=== PATIENT | male | born 1945 | race Caucasian/White ===

== ENCOUNTER 2025-01-27 14:21 | Inpatient (IN) | payer MEDICARE ==
[~2025-01-27] VITALS: Ht 195.6 cm; Wt 162.1 kg
[~2025-01-27 14:21] MED LIST: DAPA10TA PO; DOXY150T3 PO; FURO40TA4 PO; MIDO10TA3 PO; OMEP20TA23 PO; VITD400T PO
[2025-01-27] MEDS ORDERED: DOBUTamine-DoBUTrex 500mg/D5W 250 ML IV SCH (15:05)
[2025-01-27] MEDS: DOBUTamine-DoBUTrex 500mg/D5W 250 ML IV SCH (15:14)
--- NOTE | 2025-01-27 15:18 | ELECTROCARDIOGRAPH REPORT ---
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 Miranda Morgan Measurements Intervals [place] Rate: 86 P: 194 DE: 20 QRS: -11 QRSD: 129 T: 70 QT: 466 QTc: 558 Interpretive Statements Ectopic atrial rhythm Paired ventricular premature complexes Short DE interval Right atrial enlargement Nonspecific intraventricular conduction delay Anterior infarct, old Electronically Signed On 01-27-2025 17:10:[address] Miranda Morgan Please click the below link to view image of tracing.
[2025-01-27 15:32] LABS: BASOPHILS % (AUTO) 0.6 % (0-1); EOSINOPHILS # (AUTO) 0.1 X10'3 (0-0.9); EOSINOPHILS % (AUTO) 1.9 % (0-6); HEMATOCRIT 33.5 % (42.0-52.0); HEMOGLOBIN 11.6 g/dl (14.0-17.9); LYMPHOCYTES # (AUTO) 0.4 X10'3 (1.1-4.8); LYMPHOCYTES % (AUTO) 8.4 % (21-51); MEAN CORPUSCULAR HEMOGLOBIN 36.5 PG (27.0-31.0); MEAN CORPUSCULAR HGB CONC 34.7 g/dL (33.0-36.5); MEAN CORPUSCULAR VOLUME 105.4 FL (78-98); MEAN PLATELET VOLUME 7.5 FL (7.4-10.4); MONOCYTES # (AUTO) 0.3 X10'3 (0-0.9); MONOCYTES % (AUTO) 6.6 % (2-12); NEUTROPHILS # (AUTO) 3.7 X10'3 (1.8-7.7); NEUTROPHILS % (AUTO) 82.5 % (42-75); PLATELET COUNT 87 X10'3 (140-440); RED BLOOD COUNT 3.17 X10'6 (4.70-6.10); RED CELL DISTRIBUTION WIDTH 16.6 % (11.5-14.5); WHITE BLOOD COUNT 4.4 X10'3 (4.5-11.0)
[2025-01-27 15:52] LABS: ALBUMIN 2.4 G/DL (3.4-5.0); ANION GAP 8 (8-16); BLOOD UREA NITROGEN 23 MG/DL (7-18); CALCIUM 8.8 MG/DL (8.5-10.1); CHLORIDE 101 MMOL/L (99-107); CREATININE 1.15 MG/DL (0.60-1.10); GLUCOSE 121 MG/DL (70-104); POTASSIUM 3.8 MMOL/L (3.5-5.1); PRO BRAIN NATRIURETIC PEPTIDE 702 PG/ML (0-450); SODIUM 143 MMOL/L (135-145); TOTAL CARBON DIOXIDE 34.1 MMOL/L (24-32); eCRCL 67 ML/MIN; eGFR 62 ML/MIN
--- NOTE | 2025-01-27 16:14 | Physician Documentation ---
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 Patients blood glucose is 130. He presents with a dobutamine drip that is 5mog/kg/min. Patient also has a PICC present in his right upper arm. Patient was admitted to [facility] on 01/05/2025 and discharged to [facility] 01/10/2025. On this visit patients ejection fraction revealed it was 55-60%. HPI Per [facility]: This is a 79 year old male who is transferred to our facility from [facility] where he was admitted for worsening edema and shortness of breath. He was diagnosed with heart failure. They tried to diurease him over there, but his blood pressure was on the lower side so he was started on a dobuatamine drip and he was continued on Lasix and he is diuresing well on that. It looks like the patient has gained 60 pounds of fluid over the past few months. The patient is transferred to our facility for further management of his CHF and respiratory failure. Significant labs 01/23/2025: Creatinine: 0.82 Sodium: 128 Medication Reconciliation Allergies: Coded Allergies: No Known Allergies (Unverified , 01/27/25) Scheduled Cholecalciferol (Vitamin D3) (Vitamin D), 50 MCG PO DAILY, (Reported) Dapagliflozin Propanediol (Farxiga), 1 TAB PO DAILY, (Reported) Doxycycline Monohydrate (Doxycycline), 100 MG PO DAILY, (Reported) Furosemide (Furosemide), 1 TAB PO BID, (Reported) Midodrine Hcl (Midodrine Hcl), 1 TAB PO BID, (Reported) Omeprazole Magnesium (Prilosec Otc), 1 TAB PO DAILY, (Reported) Potassium Chloride (Potassium Chloride), 1 TAB PO DAILY, (Reported) Miscellaneous Medications Tobramycin/Dexamethasone (Tobramycin-Dexameth Ophth Susp), EACHEYE, (Reported) Past Medical History Past Medical History: Congestive Heart Failure, GERD, Diabetes Review of Systems All Other Systems at this time: Reviewed and Negative ROS As stated above in the HPI, otherwise all systems are reviewed and negative. Physical Exam Vital Signs: RN Vital Signs have been reviewed: Yes, Temperature: 96.5, Source: Oral, Heart Rate: 71, Respiratory Rate: 18, BP: 96/50, Pulse Oximetry: 95, Weight: 162.400 Oxygen Flow Rate: 0 Pulse Oximetry Reflects: adequate oxygenation Physical Exam General: poor appetite. The patient is well developed, well nourished, nontoxic appearing and is in no acute distress. Skin: [place], warm and dry with no rashes. HEENT: Head was normocephalic and atraumatic. Eyes - pupils equal, round, reactive to light and accommodation. Extraocular movements were intact. Conjunctivae were nonicteric. Ears - bilateral tympanic membranes were normal. The mouth and oropharynx were clear with moist mucous membranes. There were no pharyngeal exudates or erythema. Neck: Supple and nontender. There was no jugular venous distention, lymphadenopathy, thyromegaly or masses. Chest: Clear to auscultation bilaterally without wheezes, rales or rhonchi. No accessory muscle use. No dullness to percussion. Heart: Rate regular and rhythmic. S1, S2. No murmurs. Palpation of the chest wall was normal. No rubs or thrills. Abdomen: Increased bowel sounds. Soft, nontender and nondistended. No guarding or rebound. No hepatosplenomegaly or palpable masses. Extremities: Pitting edema lower extremities with weeping skin. No cyanosis, clubbing or edema. The patient moves all extremities. Pulses were equal and symmetric. Neurologic: Cranial nerves II-XII were intact. Sensation was intact to light touch throughout. Motor strength was 5/5 in all four extremities. Deep tendon reflexes were intact in both upper and lower extremities. Psychologic: The patient was oriented to person, place and time. The patient demonstrated appropriate judgement and insight. Progress Progress Note 1715: The case was discussed with Dr. Lisa who stated that the patient needs a UA and started on antibiotics. He needs to be given fluids and have the doubutamine discontinued and admitted to the hospital. 180: The case was discussed Dr. Lisa who kindly agreed to admission of the patient to the ICU. Results/Orders Reviewed/noted all lab results: Yes Results/Orders Orders - KING ZHENG MD Chest,Single View (01/27/25 15:05) Monitor (01/27/25 15:05) Saline Lock (01/27/25 15:05) Oxygen (01/27/25 15:05) Electrocardiogram (01/27/25 15:05) Culture Blood (01/27/25 16:13) Chest,Single View (01/27/25 16:44) Page Hospitalist (01/27/25 17:32) Fill Out Med Reconciliation (01/27/25 17:32) * (B) [place]- Non Protocol * Q12H@,19 (01/27/25 17:56) Completed Orders - KING ZHENG MD Dobutamine-Dobutrex 500mg/D5w (Dobutamin (01/27/25 15:05) Chest,Single View (01/27/25 15:05) Cbc/Diff (01/27/25 15:05) BMP (01/27/25 15:05) PBNP (01/27/25 15:05) Electrocardiogram (01/27/25 15:05) Hs Troponin I W Calculations (01/27/25 15:05) Hs Troponin I W Calculations (01/27/25 17:05) Hs Troponin I W Calculations (01/27/25 18:05) Dobutamine-Dobutrex 500mg/D5w (Dobutamin (01/27/25 15:06) Pt Inr (01/27/25 16:11) PTT (01/27/25 16:11) Procalcitonin (01/27/25 16:13) Lacticsepsis (01/27/25 16:13) Liver Panel (01/27/25 15:16) Chest,Single View (01/27/25 16:44) Normal Saline 1000ml (Sodium Chloride 10 (01/27/25 17:35) Ceftriaxone 2gm/D5w 50ml Bag (Rocephin 2 (01/27/25 17:35) Morphine 2mg/Ml Inj. (Morphine Inj.) (01/27/25 17:55) Ua With Microscopic (01/27/25 18:15) TSH (01/27/25 15:16) Vital Signs 01/27/25 01/27/25 01/27/25 01/27/25 14:48 15:03 15:25 15:40 Temp 96.5 Pulse 75 71 70 72 Resp 18 18 15 15 B/P (MAP) 95/37 96/41 (59) 104/49 (67) 93/48 (63) Pulse Ox 95 95 96 97 O2 Flow Rate 5.0 5.0 01/27/25 01/27/25 01/27/25 01/27/25 16:02 16:02 16:07 17:05 Temp 96.5 Pulse 71 71 Resp 18 18 13 B/P (MAP) 96/50 (65) 100/50 (67) Pulse Ox 94 95 95 O2 Delivery Nasal Cannula* O2 Flow Rate 0 5 5 FiO2 N/A N/A 01/27/25 01/27/25 01/27/25 01/27/25 18:02 18:39 18:42 19:10 Temp 95.5 95.5 Pulse 69 64 Resp 16 16 16 16 B/P (MAP) 92/42 (59) 92/46 (61) Pulse Ox 96 96 O2 Flow Rate 5.0 2.0 Laboratory Tests Test 01/27/25 15:16 01/27/25 15:36 01/27/25 16:24 01/27/25 16:56 White Blood Count 4.4 L Red Blood Count 3.17 L Hemoglobin 11.6 L Hematocrit 33.5 L Mean Corpuscular Volume 105.4 H Mean Corpuscular Hemoglobin 36.5 H Mean Corpuscular Hemoglobin Concent 34.7 Red Cell Distribution Width 16.6 H Platelet Count 87 L Mean Platelet Volume 7.5 Neutrophils (%) (Auto) 82.5 H Lymphocytes (%) (Auto) 8.4 L Monocytes (%) (Auto) 6.6 Eosinophils (%) (Auto) 1.9 Basophils (%) (Auto) 0.6 Neutrophils # (Auto) 3.7 Lymphocytes # (Auto) 0.4 L Monocytes # (Auto) 0.3 Eosinophils # (Auto) 0.1 Basophils # (Auto) 0.0 CBC Comment Prothrombin Time 16.1 H INR International Normalized Ratio 1.6 Activated Partial Thromboplast Time 46 H Coagulation Comments Sodium Level 143 Potassium Level 3.8 Chloride Level 101 Carbon Dioxide Level 34.1 H Anion Gap 8 Blood Urea Nitrogen 23 H Creatinine 1.15 H Estimated GFR/1.73 m2 62 BUN/Creatinine Ratio 20.0 Glucose Level 121 H Calcium Level 8.8 Total Bilirubin 2.7 H Direct Bilirubin 1.4 H Aspartate Amino Transf (AST/SGOT) 46 H Alanine Aminotransferase (ALT/SGPT) 27 Alkaline Phosphatase 144 H Troponin I High Sensitivity 11 11 Pro-B-Type Natriuretic Peptide 702 H Total Protein 6.0 L Albumin 2.4 L Globulin 3.6 Albumin/Globulin Ratio 0.7 L Thyroid Stimulating Hormone (TSH) 0.56 Chemistry Comments Procalcitonin 0.17 Lactic Acid Level 1.9 Troponin I High Sens Percent Delta 0 Troponin I Hi Sens Absolute Change 0 Test 01/27/25 17:56 01/27/25 18:15 Troponin I High Sensitivity 11 Troponin I High Sens Percent Delta 0 Troponin I Hi Sens Absolute Change 0 Urine Specimen Description Non-specified Urine Color Yellow Urine Clarity Slightly cloudy Urine pH 5.5 Urine Specific [place] 1.015 Urine Protein Trace Urine Glucose (UA) >=1000 H Urine Ketones Trace H Urine Occult Blood Large H Urine Nitrite Negative Urine Bilirubin Small Urine Urobilinogen 1.0 Urine Leukocyte Esterase Trace H Urine RBC Tntc Urine WBC Tntc H Urine Squamous Epithelial Cells Few Urine Bacteria 3+ Urine Hyaline Casts 10-30 Volume Urine Centrifuged 10 ml Urine Comment Microbiology Date/Time Source Procedure Growth Status 01/27/25 16:56 Blood Arm Left Blood Culture - Preliminary NO GROWTH AFTER 3 DAYS Resulted Re-Evaluation Re-Evaluation : Re-Evaluation: Improved Progress Patient was seen and examined. Patient was given reassurance. Patient presented with some generalized weakness as well as low blood pressure. Patient presented with significant edema throughout his body. The edema is concerning in that the patient can not receive excessive amounts of fluids since he is already 3rd spacing. Laboratory work CBC shows pancytopenia with a low WBC of 4.4 hemoglobin hematocrit low at 11 and 33. MCV is elevated at 105.4 showing macrocytic anemia. Platelets low at 87. Chemistry shows albumin low at 2.4. And only trace proteinuria in the urine. There is glucosuria hematuria and ketonuria with trace leukocyte esterase TNTC RBCs TNTC WBCs consistent with significant urinary infection. Patient did receive a L bolus but then no additional fluids were given after he responded to fluids. Concern for fluid overload prevented additional fluid bolus at this time. Patient also received pain medications in the ICU doctor was then consulted to evaluate the patient. Continuous cardiac rn interpretation shows normal sinus rhythm heart rate 7 0s, no ectopy, normal, my interpretation. Pulse oximetry monitor interpretation shows low oxygenation at 95% on 5 L oxygen, abnormal, my interpretation. 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 King Zheng Measurements Intervals [place] Rate: 86 P: 194 ID: 20 QRS: -11 QRSD: 129 T: 70 QT: 466 QTc: 558 Interpretive Statements Ectopic atrial rhythm Paired ventricular premature complexes Short [place] interval Right atrial enlargement Nonspecific intraventricular conduction delay Anterior infarct, old Electronically Signed On 01-27-2025 17:10:[address] King Zheng Please click the below link to view image of tracing. EKG Date and Time:01/27/25 1517 Electronically Signed by: KING ZHENG MD Date and Time: 01/27/25 1710 Chest X-Ray #1: Additional Comments CHEST RADIOGRAPH Indication: PICC LINE PLACEMENT CONFIRMATION Technique: Single frontal view of the chest was obtained COMPARISON: DI CHEST,SINGLE VIEW on DOS: 01/05/25 FINDINGS: Lines and Tubes: Right PICC in satisfactory position at the junction of the subclavian vein and superior vena cava. Lungs: Clear Pleura: No effusion. No pneumothorax. Cardiomediastinal contours: Unremarkable Bones: Unremarkable IMPRESSION: Right PICC in satisfactory position at the junction of the subclavian vein and superior vena cava. Electronically Signed by:BAY GABRIEL MD Date & Time: 01/27/25 2094 Chest X-Ray #2: Additional Comments EXAM: DI CHEST,SINGLE VIEW TECHNIQUE: Single frontal chest radiograph CLINICAL HISTORY: CP COMPARISON: DI CHEST,SINGLE VIEW on DOS: 01/05/25 Findings/Impression: Frontal chest radiograph demonstrates no acute osseous or superficial soft tissue abnormalities. Right upper extremity PICC terminates near the mid SVC. The trachea is midline. Mild cardiomegaly. Low lung volumes bronchovascular crowding and bibasilar atelectasis. No pneumothorax, pleural effusions, or consolidations. Electronically Signed by:LOLY DOYLE DO Date & Time: 01/27/25 1741 Medical Decision Making Additional info obtained from: old records Differential Dx:Considerations: Include: anemia, dehydration, electrolyte imbalance, hypotension, hypovolemia, renal failure, respiratory failure, other Departure Time of Disposition: 18:07 Disposition: ADMITTED INPATIENT Admitted to Inpatient Unit: yes, to binder layer Admission Level of Care: Critcal Care Impression: Primary Impression: Anasarca Additional Impressions: Hypothermia Qualified Codes: T68.XXXA - Hypothermia, initial encounter Prolonged Qtc Chronic anemia Acute urinary tract infection Condition: Critical Referrals: NO PRIMARY CARE PROVIDER (PCP) Education Educated: Patient Educated regarding: diagnosis Critical Care Note Total Time (mins): 33 Critical Care Note The very real possibility of a deterioration of this patient's condition required the highest level of my preparedness for sudden, emergent intervention. I provided critical care services, which included medication orders, frequent reevaluations of the patient's condition and response to treatment, ordering and reviewing test results, and discussing the case with various consultants. Excludes time spent performing separately billable procedures. The critical care time associated with the care of the patient was 33 minutes. Signature Scribe Signature: Scribed for King Zheng MD by Rosa Chiang . 01/27/25 16:39 Attestation: The note accurately reflects work and decisions made by me.King Zheng MD 01/27/25 16:14 KING ZHENG MD Jan 27, 2025 16:14 ROSA MARAVILLA Jan 27, 2025 16:40
[2025-01-27 16:29] LABS: APTT 46 SECONDS (22-32); INR 1.6 INR; PROTHROMBIN TIME 16.1 SECONDS (9.0-12.0)
[2025-01-27 16:49] LABS: ALANINE AMINOTRANSFERASE 27 U/L (12-78); ALBUMIN/GLOBULIN RATIO 0.7 (1.1-1.5); ALKALINE PHOSPHATASE 144 IU/L (46-116); ASPARTATE AMINO TRANSFERASE 46 U/L (10-37); BILIRUBIN,DIRECT 1.4 MG/DL (0-0.3); BILIRUBIN,TOTAL 2.7 MG/DL (0.1-1.0)
--- NOTE | 2025-01-27 17:43 | RADIOLOGY REPORT ---
EXAM: DI CHEST,SINGLE VIEW TECHNIQUE: Single frontal chest radiograph CLINICAL HISTORY: CP COMPARISON: DI CHEST,SINGLE VIEW on DOS: 01/05/25 Findings/Impression: Frontal chest radiograph demonstrates no acute osseous or superficial soft tissue abnormalities. Right upper extremity PICC terminates near the mid SVC. The trachea is midline. Mild cardiomegaly. Low lung volumes bronchovascular crowding and bibasilar atelectasis. No pneumothorax, pleural effusions, or consolidations.
--- NOTE | 2025-01-27 17:46 | RADIOLOGY REPORT ---
CHEST RADIOGRAPH Indication: PICC LINE PLACEMENT CONFIRMATION Technique: Single frontal view of the chest was obtained COMPARISON: DI CHEST,SINGLE VIEW on DOS: 01/05/25 FINDINGS: Lines and Tubes: Right PICC in satisfactory position at the junction of the subclavian vein and super ior vena cava. Lungs: Clear Pleura: No effusion. No pneumothorax. Cardiomediastinal contours: Unremarkable Bones: Unremarkable IMPRESSION: Right PICC in satisfactory position at the junction of the subclavian vein and superior vena cava.
[2025-01-27] MEDS: morphine 2 MG/ML inj. syringe IV ONE (18:02)
[2025-01-27] MEDS: normal saline 1000ML IV soln IV ONE (18:02)
[2025-01-27] MEDS: CefTRIAXone 2gm/D5W 50ml BAG 50 ML IV ONE (18:02)
[2025-01-27] MEDS ORDERED: TOBR5DRO7 EACHEYE (18:15)
--- NOTE | 2025-01-27 18:42 | HISTORY AND PHYSICAL ---
History of Present Illness History of present illness 80-year-old male who was transferred from [facility] via EMS for hypothermia and hypotension. The patient was transferred to [facility] from [facility] after he was admitted for anasarca and dyspnea. He was diagnosed with heart failure at that time with a normal EF. He was treated with diuretic therapy and dobutamine and transferred to [facility]. He was notable for hypotension and hypothermia in the emergency department. He was on dobutamine at 4 mcg/kg per minute. Physical examination revealed anasarca. Dobutamine was stopped because the patient was hypotensive and has a background history of a normal EF. He has no complaint of fever, chills, shortness of breath, chest pain/chest tightness, cough, phlegm, wheezing, no dysuria, no headaches, no diplopia, no blurring of vision, no lightheadedness and no dizziness. Expected to stay > 48 hours Yes Reason for Visit: Pulmonary critical care Chief complaint Hypothermia and hypotension Source: Patient, Family (Daughter), Medical Records Past Medical History Past medical history Morbid obesity, diabetes mellitus, congestive heart failure, anasarca since July of last year, bed ridden at least for two years after hip fracture repair at [facility]. Past Surgical History Surgical history Hip fracture repair. Past Family History Family history Reviewed with daughter and noncontributory. Past Social History Social history No history of tobacco consumption, no history of alcohol consumption and no history of recreational drug use. Medications Home Meds Reported Medications Tobramycin/Dexamethasone (Tobramycin-Dexameth Ophth Susp) 0.3 %-0.1 % Drops.susp, EACHEYE 01/27/25 Cholecalciferol (Vitamin D3) (Vitamin D) 10 Mcg (400 Unit) Tablet, 50 MCG PO DAILY for 30 Days, #30 TAB 0 Refills 01/05/25 Doxycycline Monohydrate (Doxycycline) 150 Mg Tablet, 100 MG PO DAILY for 10 Days, #20 TAB 01/05/25 Dapagliflozin Propanediol (Farxiga) 10 Mg Tablet, 1 TAB PO DAILY for 30 Days, #30 TAB 0 Refills 01/05/25 Midodrine Hcl (Midodrine Hcl) 10 Mg Tablet, 1 TAB PO BID for 30 Days, #90 TAB 0 Refills 01/05/25 Furosemide (Furosemide) 40 Mg Tablet, 1 TAB PO BID for 30 Days, #30 TAB 0 Refills 01/05/25 Omeprazole Magnesium (Prilosec Otc) 20 Mg Tablet.dr, 1 TAB PO DAILY for 30 Days, #30 TAB 0 Refills 01/05/25 Current medications Current Medications Dobutamine HCl/ Dextrose 250 ml @ 9.744 mls/ hr [id number] IV ; Start 01/27/25 at 15:05; Stop 01/27/25 at 15:06; Status DC Dobutamine HCl/ Dextrose 250 ml @ 9.744 mls/ hr [id number] IV Last administered on 01/27/25at 15:14; Start 01/27/25 at 15:06 Sodium Chloride (sodium chloride 1000ml IV soln) 1,000 ml ONCE ONCE IV Last administered on 01/27/25at 18:02; Start 01/27/25 at 17:35; Stop 01/27/25 at 17:37; Status DC Ceftriaxone Sodium/Dextrose 50 ml @ 100 mls/hr ONCE ONCE IV Last administered on 01/27/25at 18:02; Start 01/27/25 at 17:35; Stop 01/27/25 at 18:04; Status DC Morphine Sulfate (morphine inj.) 2 mg ONCE ONCE IV Last administered on 01/27/25at 18:02; Start 01/27/25 at 17:55; Stop 01/27/25 at 17:56; Status DC Review of Systems Allergies: Coded Allergies: No Known Allergies (Unverified , 01/27/25) Exam Vital signs Vital Signs Date Time Temp Pulse Resp B/P (MAP) Pulse Ox O2 Delivery O2 Flow Rate FiO2 01/27/25 18:02 16 01/27/25 17:05 96.5 71 13 100/50 (67) 95 5 N/A 01/27/25 16:07 95 Nasal Cannula* 5 N/A 01/27/25 16:02 71 18 96/50 (65) 94 0 01/27/25 16:02 18 01/27/25 15:40 72 15 93/48 (63) 97 01/27/25 15:25 70 15 104/49 (67) 96 01/27/25 15:03 71 18 96/41 (59) 95 5.0 01/27/25 14:48 96.5 75 18 95/37 95 5.0 Physical exam HEENT examination: N/C/AT, PERRLA, EOMI, anicteric sclerae Neck: Supple, with no jugular venous distention and no lymphadenopathy. Chest: Symmetric expansion bilaterally Pulmonary: Clear to auscultation bilaterally with no wheezing, no rales and no rhonchi Cardiovascular: Normal S1 and S2 without any S3-S4 gallop Abdomen: Morbidly obese soft and nontender and no organomegaly. Extremities: Anasarca Neurology: No focal deficits Psych: Normal affect Laboratory Results Laboratory Tests 01/27/25 15:16 Chemistry Test 01/27/25 15:16 Albumin 2.4 G/DL (3.4-5.0) L Albumin/Globulin Ratio 0.7 (1.1-1.5) L Calcium Level 8.8 MG/DL (8.5-10.1) Globulin 3.6 G/DL (2.7-4.3) Total Protein 6.0 G/DL (6.4-8.2) L Coagulation Test 01/27/25 15:16 Prothrombin Time 16.1 SECONDS (9.0-12.0) H INR International Normalized Ratio 1.6 INR Activated Partial Thromboplast Time 46 SECONDS (22-32) H Coagulation Comments LFT Test 01/27/25 15:16 Alanine Aminotransferase (ALT/SGPT) 27 U/L (12-78) Alkaline Phosphatase 144 IU/L (46-116) H Aspartate Amino Transf (AST/SGOT) 46 U/L (10-37) H Direct Bilirubin 1.4 MG/DL (0-0.3) H Total Bilirubin 2.7 MG/DL (0.1-1.0) H Urinalysis Test 01/27/25 18:15 Urine Specimen Description Pending Urine Color Pending Urine Clarity Pending Urine pH Pending Urine Specific [place] Pending Urine Protein Pending Urine Glucose (UA) Pending Urine Ketones Pending Urine Occult Blood Pending Urine Nitrite Pending Urine Bilirubin Pending Urine Urobilinogen Pending Urine Leukocyte Esterase Pending Volume Urine Centrifuged Pending Urine Comment Microbiology Microbiology 01/27/25 Blood Culture - Preliminary, Resulted NEGATIVE (LESS THAN 24 HOURS) Assessment/Plan Plan Hypotension: Could have been exacerbated or caused by dobutamine. Dobutamine was discontinued. EKG reveals a sinus rhythm. Troponins are unremarkable. Hypothermia: Improved with a Jodi Hugger. Anasarca with no radiological evidence of acute CHF VS cause: Patient is at [facility] since July 2024 according to the daughter. Differential diagnosis is hepatic cause, renal cause and cardiac cause. Most recent echocardiogram revealed an EF of 55-60%. ID: Hypothermia, Mild leukopenia with hypotension could be due to an infectious process. He has a normal lactate level. His procalcitonin level is suggestive of low risk for sepsis. New line blood cultures were drawn. No need for antibiotic therapy at this point. Deconditioning: Daughter reports that patient has been nonambulatory for two years and has developed anasarca Endocrine: Has history of diabetes. Maintain serum glucose levels of 140-180 mg/dL. Plan: Dobutamine was discontinued since it is a peripheral vasodilator in a patient with hypotension and a normal EF. We will check TSH and random cortisol levels. Check urine for proteinuria Continue apixaban 2.5 mg p.o. b.i.d. hold diuretic therapy in light of hypotension. Code status: Full code after discussion with the patient in the presence of his daughter in the emergency room. IV access: PICC line Overall prognosis: Guarded Critical care time: 35 minutes. VTE VTE Risk Score VTE Risk Score Reference Ranges: Score 0-1 = Low Risk (Aggressive mobilization; early ambulation; no VTE prophylaxis required) Score 2: Moderate Risk (Intermittent/Pneumatic Compression Device OR Lovenox/Heparin/Coumadin) Score 3-4: High Risk (Intermittent/Pneumatic Compression Device AND Lovenox/Heparin/Coumadin) Score > or = 5: Highest Risk (Intermittent/Pneumatic Compression Device AND Lovenox/Heparin/Coumadin) ANDERS GARCIA MD Jan 27, 2025 18:42
[2025-01-27 18:43] LABS: BILIRUBIN,URINE SMALL (Neg); CLARITY,URINE SLIGHTLY CLOUDY (Clear); COLOR,URINE YELLOW (Yellow); GLUCOSE, URINE >=1000 mg/dl (Neg); KETONES,URINE TRACE mg/dl (Neg); LEUKOCYTE ESTERASE ,URINE TRACE (Neg); NITRITES, URINE NEGATIVE (Neg); OCCULT BLOOD,URINE LARGE (Neg); PH,URINE 5.5 (4.8-8.0); PROTEIN,URINE TRACE mg/dl (Neg)
[2025-01-27 18:45] LABS: UA COLLECTION TYPE NON-SPECIFIED
[2025-01-27 18:52] LABS: WBC,URINE TNTC /HPF (0-4)
[2025-01-27 18:53] LABS: RBC,URINE TNTC /HPF (0-2)
[2025-01-27 18:54] LABS: BACTERIA,URINE 3+ /HPF (Neg); SQUAMOUS EPITHELIAL CELL,UR FEW /LPF (FEW)
[2025-01-27] MEDS ORDERED: ondansetron/PF 4mg/2ml inj IV PRN (19:05)
[2025-01-27] MEDS ORDERED: acetaminophen 325mg tablet PO PRN (19:05)
[2025-01-27] MEDS ORDERED: magnesium hydroxide 30ml (MOM) UD suspension PO PRN (19:05)
--- NOTE | 2025-01-27 19:22 | HISTORY AND PHYSICAL-Residence ---
History & Physical Providers to CC Resident Creating Document: SAQIBFAUSTO, RES ~ History of Present Illness Primary Medical Doctor: NATANAEL Seymour Reason for Admit\Complaint: Hypotension and hypothermia History of Present Illness A 80 years old male who was transferred from [facility] on dobutamine drip (4mcg/kg) with a concern of hypothermia and hypotension with progressive acute on chronic shortness of breaths over a week which was associated with generalized anasarca for further evaluation and management plan with a past medical history of CHFpEF 55-60% on Farxiga and Furosemide, T2DM, Class 3 obesity on BMI 42.5, rosacea on doxycycline , residential housekeeper is Dr. Rankin and underwent the stress test three months ago without knowing the results, orthostatic hypotension on midodrine, GERD, right hip surgery and became bed bound since last 2 years, and recent hospitalization at [facility] for CHF exacerbation/ anasarca, and treated with IV Lasix complicated with hypotension on that admission as well. Patient is slightly confused but orientated and communicable but his daughter who is working at OR answered most of the questions. Patient's daughter stated that her mom was the one who was taking care of her dad at the [facility] and started noticing kind of off from his normal, fatigue and generalized weakness and progressive shortness of breath even on the resting with low intake since last week. He has been having the chronic orthopnea PND, sleep with bed recliner. He has been having the generalized edema and did not notice any fluid coming out under his skin. Patient also stated that he has been having the back and scapular pain. Patient also noticed that diarrhea one time this morning. Patient denied chest pain/pressure/discomfort, lower urinary tract infection symptoms and any other open wounds, and productive colored sputum coughing. He dose not have to use any baseline oxygen at home and currently on the 5L NC by maintaining 96%. In ER, patient's dobutamine was stopped because of his low blood pressure and will be admitted to the ICU for the close monitoring and further workups under intensive observation. Allergies: Coded Allergies: No Known Allergies (Unverified , 01/27/25) Home Medications Home Medications Active Reported Tobramycin-Dexameth Ophth Susp (Tobramycin/Dexamethasone) 0.3 %-0.1 % Drops.susp EACHEYE Vitamin D (Cholecalciferol (Vitamin D3)) 10 Mcg (400 Unit) Tablet 50 Mcg PO DAILY 30 Days Doxycycline (Doxycycline Monohydrate) 150 Mg Tablet 100 Mg PO DAILY 10 Days Farxiga (Dapagliflozin Propanediol) 10 Mg Tablet 1 Tab PO DAILY 30 Days Midodrine Hcl 10 Mg Tablet 1 Tab PO BID 30 Days Furosemide 40 Mg Tablet 1 Tab PO BID 30 Days Prilosec Otc (Omeprazole Magnesium) 20 Mg Tablet.dr 1 Tab PO DAILY 30 Days Past Medical History Past Medical History CHFpEF 55-60% on Farxiga and Furosemide, T2DM, Class 3 obesity on BMI 42.5, rosacea on doxycycline , residential housekeeper is Dr. Rankin and underwent the stress test three months ago without knowing the results, orthostatic hypotension on midodrine, GERD, and recent hospitalization at [facility] for CHF exacerbation/ anasarca, and treated with IV Lasix complicated with hypotension on that admission as well. Past Surgical History Surgical History Comment right hip surgery and became bed bound since last 2 years Past Social History Social History Comment He was transferred from [facility] after he was recently discharged from [facility] after treated with IV Lasix for CHF PEF exacerbation with generalized anasarca. His residential housekeeper is Dr. Rankin He is living with the spouse was taking care of him He is totally bedbound since he has a right hip repair surgery two years ago. Denies history of alcohol, illicit drugs and smoking history. ROS All Other Systems: Reviewed and Negative ROS Hours were reviewed, WNL except for the above mentioned in HPI Exam Vitals: Vital Signs Date Time Temp Pulse Resp B/P (MAP) Pulse Ox O2 Delivery O2 Flow Rate FiO2 01/27/25 18:42 16 01/27/25 18:39 95.5 69 96 5.0 01/27/25 17:05 N/A 01/27/25 16:07 Nasal Cannula* General: General: Generalized anasarca, alert, oriented, slightly confused, not agitated, not in acute distress, well cooperated during the physical. HEENT: HEENT: Looks paper white pale, eyelids are covered with dry mucus deposit bilaterally, Conjunctive are pink, sclerae clear, no icterus, pupil is equal in both sides, reactive to light, no ear discharge, no pharyngeal erythema or an edema, mouth and lips are dry. Neck: Neck: Supple, no JVD, no lymphadenopathy and thyromegaly. Chest: Lungs:Equal air entry on both lungs, widespread fine crackles and rhonchi bilaterally Cardiovascular: Heart: S1-S2 regular sinus rhythm and, regular rate, no gallops, no rubs, no murmurs Abdomen: Abdomen: No visible peristalsis, Bowel sounds present on auscultation, soft, nontender, no guarding, no rigidity Extremities: Extremities: No obvious deformities, 3+ pitting edema bilaterally, capillary refill intact, able to wiggle toes both sides, peripheral pulsations are intact on both sides Central Nervous System: ENTRY LEVEL INSTALLATION TECHNICIAN: No focal neurological deficits, no motor and sensory weakness in all 4 extremities, could move all 4 extremities Musculoskeletal: Musculoskeletal: No joint swelling, deformities, inflammations, and no scoliosis and back tenderness Skin: Skin: Some dry skin over the extremities, redness from the chronic dermatitis over the extremities, No active skin lesions and rashes Diagnostic Data Last Recorded Lab Results: 01/27/25 1516 01/27/25 1516 Diagnostic Data: Laboratory Tests Test 01/27/25 15:16 Prothrombin Time 16.1 SECONDS (9.0-12.0) H INR International Normalized Ratio 1.6 INR Activated Partial Thromboplast Time 46 SECONDS (22-32) H Coagulation Comments Advance Care Planning Advanced Care plannin - 30 Minutes Additional Plan A 80 years old male who was transferred from [facility] on dobutamine drip (4mcg/kg) with a concern of hypothermia and hypotension with progressive acute on chronic shortness of breaths over a week which was associated with generalized anasarca for further evaluation and management plan with a past medical history of CHFpEF 55-60% on Farxiga and Furosemide, T2DM, Class 3 obesity on BMI 42.5, rosacea on doxycycline , residential housekeeper is Dr. Rankin and underwent the stress test three months ago without knowing the results, orthostatic hypotension on midodrine, GERD, right hip surgery and became bed bound since last 2 years, and recent hospitalization at [facility] for CHF exacerbation/ anasarca, and treated with IV Lasix complicated with hypotension on that admission as well. # Hypothermia # Hypotension # Possible Sepsis on POA 2/ LUTI -chest x-ray showed Right PICC in satisfactory position at the junction of the subclavian vein and superior vena cava. Frontal chest radiograph demonstrates no acute osseous or superficial soft tissue abnormalities. The trachea is midline. Mild cardiomegaly. Low lung volumes bronchovascular crowding and bibasilar atelectasis. No pneumothorax, pleural effusions, or consolidations. -WBC 4.4, normal lactic acid and procalcitonin -blood pressure around 90/40 mm Hg -dobutamine was stopped for hypotension and given 1 L bolus normal saline in ER, continue IV fluids as maintenance -UA showed positive leukocyte esterase and TNTC WBC with large occult blood. -monitor for PICC line for the possible source of infection -continue IV ceftriaxone daily, continue following up with blood culture -medication reconciliation was pending and continue appropriately -continue supporting with the thermal warmer in ICU -[place] for strict I's and O's -follow up with TSH and we will consider for the possible steroid insufficiency/cortisol if no certain cause of Hypothermia and hypotension # acute on chronic CHFpEF 55-60% exacerbation # chronic generalized anasarca -he will be beneficial to consult with Dr. Rankin's and review with the previous cardiology workup -continue GDMT home medications after medication reconciliation was done -Last time 2D echocardiogram on 01/06/2025 showed LVEF 55-60%, RV moderately dilated, trace MR, TR, normal pericardium and no effusion # ANDREA on CKD stage 2 -his baseline creatinine is was around one, monitor I's and O's and [place] -please continue monitoring for the rate of EGFR declining with time -continue IV fluids # mild transaminitis with hyperbilirubinemia # pancytopenia -could be from sepsis but mild transaminitis does not agree with -hyperbilirubinemia, he will be beneficial to exclude possible cause of intravascular hemolysis lead to anemia/B12 deficiency -pancytopenia could be possibly from the excessive fluid resuscitation for hypotension/hemodilution effect CODE STATUS: Full code DVT prophylaxis: Renal dose of Eliquis Lines: PICC line GI prophylaxis: None Prognosis: Guarded in ICU Disposition: Continue medical management in ICU as per lead welder team management plan, hospitalist team will follow the patient, appreciate for letting us involved in the patient's care. Resident attestation: Patient was seen, examined and discussed with attending , Dr. Jeremias CERRATO MD Internal Medicine Resident, PGY2 [facility] Date of Service: Jan 27, 2025 Billing Provider: JESSICA MORRIS MD, TIN, RES Jan 27, 2025 19:22
[2025-01-27 19:31] LABS: THYROID STIMULATING HORMONE 0.56 ulU/ml (0.34-4.50)
[2025-01-27] MEDS: LidoCAINE 2% Topical Jelly 11mL syringe (UROJET) TOP ONE (19:31)
[2025-01-27] MEDS: apixaban 2.5mg tablet PO SCH (20:31)
[2025-01-28 09:10] LABS: BASOPHILS % (AUTO) 0.4 % (0-1); EOSINOPHILS # (AUTO) 0.3 X10'3 (0-0.9); HEMATOCRIT 38.4 % (42.0-52.0); HEMOGLOBIN 13.1 g/dl (14.0-17.9); LYMPHOCYTES # (AUTO) 0.5 X10'3 (1.1-4.8); LYMPHOCYTES % (AUTO) 7.4 % (21-51); MEAN CORPUSCULAR HEMOGLOBIN 36.2 PG (27.0-31.0); MEAN CORPUSCULAR HGB CONC 34.1 g/dL (33.0-36.5); MEAN CORPUSCULAR VOLUME 106.3 FL (78-98); MEAN PLATELET VOLUME 7.7 FL (7.4-10.4); MONOCYTES # (AUTO) 0.5 X10'3 (0-0.9); MONOCYTES % (AUTO) 7.7 % (2-12); NEUTROPHILS # (AUTO) 5.5 X10'3 (1.8-7.7); NEUTROPHILS % (AUTO) 79.5 % (42-75); PLATELET COUNT 130 X10'3 (140-440); RED BLOOD COUNT 3.61 X10'6 (4.70-6.10); RED CELL DISTRIBUTION WIDTH 16.6 % (11.5-14.5); WHITE BLOOD COUNT 6.9 X10'3 (4.5-11.0)
[2025-01-28 09:30] LABS: ALANINE AMINOTRANSFERASE 28 U/L (12-78); ALBUMIN 2.5 G/DL (3.4-5.0); ALBUMIN/GLOBULIN RATIO 0.6 (1.1-1.5); ALKALINE PHOSPHATASE 155 IU/L (46-116); ANION GAP 5 (8-16); ASPARTATE AMINO TRANSFERASE 55 U/L (10-37); BILIRUBIN,TOTAL 2.7 MG/DL (0.1-1.0); BLOOD UREA NITROGEN 25 MG/DL (7-18); BUN/CREATININE RATIO 19.2 (10.0-20.0); CALCIUM 8.6 MG/DL (8.5-10.1); CHLORIDE 102 MMOL/L (99-107); GLUCOSE 92 MG/DL (70-104); SODIUM 140 MMOL/L (135-145); TOTAL CARBON DIOXIDE 33.1 MMOL/L (24-32); TOTAL PROTEIN 6.5 G/DL (6.4-8.2); eCRCL 59 ML/MIN; eGFR 53 ML/MIN
--- NOTE | 2025-01-28 11:45 | PROGRESS NOTE ---
Subjective Subjective Patient is seen this morning. He was sleeping but was arousable. He was in no apparent distress. Reason for visit: Pulmonary critical care follow-up Reviewed: Care Plan, H&P, Labs, Radiology Review of Systems Changes from previous H/P or p: No Changes Daily Progress Note Exam Vitals Vital Signs Date Time Temp Pulse Resp B/P (MAP) Pulse Ox O2 Delivery O2 Flow Rate FiO2 01/28/25 11:00 97.9 78 12 114/50 (71) 97 2.0 N/A 01/27/25 16:07 Nasal Cannula* Result Diagram: 01/28/25 0859 01/28/25 0859 Exam HEENT examination: N/C/AT, PERRLA, EOMI, anicteric sclerae Neck: Supple, with no jugular venous distention and no lymphadenopathy. Chest: Symmetric expansion bilaterally Pulmonary: Clear to auscultation bilaterally with no wheezing, no rales and no rhonchi Cardiovascular: Normal S1 and S2 without any S3-S4 gallop Abdomen: Morbidly obese soft and nontender and no organomegaly. Extremities: Anasarca Neurology: No focal deficits Psych: Normal affect Results Coagulation Studies Laboratory Tests Test 01/27/25 15:16 Prothrombin Time 16.1 SECONDS (9.0-12.0) H INR International Normalized Ratio 1.6 INR Activated Partial Thromboplast Time 46 SECONDS (22-32) H Coagulation Comments VTE VTE Risk Score VTE Risk Score Reference Ranges: Score 0-1 = Low Risk (Aggressive mobilization; early ambulation; no VTE prophylaxis required) Score 2: Moderate Risk (Intermittent/Pneumatic Compression Device OR Lovenox/Heparin/Coumadin) Score 3-4: High Risk (Intermittent/Pneumatic Compression Device AND Lovenox/Heparin/Coumadin) Score > or = 5: Highest Risk (Intermittent/Pneumatic Compression Device AND Lovenox/Heparin/Coumadin) Assessment/Plan Plan Hypotension: Improved. Do not resume dobutamine. EKG reveals a sinus rhythm. Troponins are unremarkable. Hypothermia: Improved with a Jodi Hugger. Anasarca with no radiological evidence of acute CHF VS cause: Patient is at [facility] since July 2024 according to the daughter. Differential diagnosis is hepatic cause, renal cause and cardiac cause. Most recent echocardiogram revealed an EF of 55-60%. ID: Hypothermia: Resolved. TSH within normal limits. Random cortisol pending. Mild leukopenia with hypotension could be due to an infectious process. He has a normal lactate level. Serial procalcitonin levels suggestive of low risk for sepsis. Blood cultures without any growth. No need for antibiotic therapy at this point. Deconditioning: Daughter reports that patient has been nonambulatory for two years and has developed anasarca Endocrine: Has history of diabetes. Maintain serum glucose levels of 140-180 mg/dL. Plan: Do not resume dobutamine Follow random cortisol level result. Check urine for proteinuria Continue apixaban 2.5 mg p.o. b.i.d. hold diuretic therapy in light of hypotension. Code status: Full code after discussion with the patient in the presence of his daughter in the emergency room. IV access: PICC line Overall prognosis: Guarded Critical care time: 35 minutes. Downgrade to PCU. ANDERS GACRIA MD Jan 28, 2025 11:45
[2025-01-28 12:30] VITALS: BP 109/50; PULSE 80; RESP 16; TEMP 97.6; O2SAT 94
[2025-01-28] MEDS ORDERED: CefTRIAXone 2gm/D5W 50ml BAG 50 ML IV SCH (12:50)
[2025-01-28] MEDS ORDERED: vancomycin/NS 1 GM ADD-VANTAGE 250 ML IV SCH (13:00)
--- NOTE | 2025-01-28 14:03 | CONSULTATION REPORT - RESIDENT ---
Consult Providers to CC Resident Creating Document: FAUSTO CERRATO RES History of Present Illness Reason for Admit\Complaint: Hypotension and hypothermia History of Present Illness *This is a consultation note for 01/27/25* A 80 years old male who was transferred from [facility] on dobutamine drip (4mcg/kg) with a concern of hypothermia and hypotension with progressive acute on chronic shortness of breaths over a week which was associated with generalized anasarca for further evaluation and management plan with a past medical history of CHFpEF 55-60% on Farxiga and Furosemide, T2DM, Class 3 obesity on BMI 42.5, rosacea on doxycycline , shelter supervisor is Dr. Rankin and underwent the stress test three months ago without knowing the results, orthostatic hypotension on midodrine, GERD, right hip surgery and became bed bound since last 2 years, and recent hospitalization at [facility] for CHF exacerbation/ anasarca, and treated with IV Lasix complicated with hypotension on that admission as well. Patient is slightly confused but orientated and communicable but his daughter who is working at OR answered most of the questions. Patient's daughter stated that her mom was the one who was taking care of her dad at the [facility] and started noticing kind of off from his normal, fatigue and generalized weakness and progressive shortness of breath even on the resting with low intake since last week. He has been having the chronic orthopnea PND, sleep with bed recliner. He has been having the generalized edema and did not notice any fluid coming out under his skin. Patient also stated that he has been having the back and scapular pain. Patient also noticed that diarrhea one time this morning. Patient denied chest pain/pressure/discomfort, lower urinary tract infection symptoms and any other open wounds, and productive colored sputum coughing. He dose not have to use any baseline oxygen at home and currently on the 5L NC by maintaining 96%. In ER, patient's dobutamine was stopped because of his low blood pressure and will be admitted to the ICU for the close monitoring and further workups under intensive observation. Allergies: Coded Allergies: No Known Allergies (Unverified , 01/27/25) Home Medications Home Medications Active Reported Tobramycin-Dexameth Ophth Susp (Tobramycin/Dexamethasone) 0.3 %-0.1 % Drops.susp EACHEYE Vitamin D (Cholecalciferol (Vitamin D3)) 10 Mcg (400 Unit) Tablet 50 Mcg PO DAILY 30 Days Doxycycline (Doxycycline Monohydrate) 150 Mg Tablet 100 Mg PO DAILY 10 Days Farxiga (Dapagliflozin Propanediol) 10 Mg Tablet 1 Tab PO DAILY 30 Days Midodrine Hcl 10 Mg Tablet 1 Tab PO BID 30 Days Furosemide 40 Mg Tablet 1 Tab PO BID 30 Days Prilosec Otc (Omeprazole Magnesium) 20 Mg Tablet.dr 1 Tab PO DAILY 30 Days Past Medical History Past Medical History CHFpEF 55-60% on Farxiga and Furosemide, T2DM, Class 3 obesity on BMI 42.5, rosacea on doxycycline , shelter supervisor is Dr. Rankin and underwent the stress test three months ago without knowing the results, orthostatic hypotension on midodrine, GERD, and recent hospitalization at [facility] for CHF exacerbation/ anasarca, and treated with IV Lasix complicated with hypotension on that admission as well. Past Surgical History Surgical History Comment right hip surgery and became bed bound since last 2 years Past Social History Social History Comment He was transferred from [facility] after he was recently discharged from [facility] after treated with IV Lasix for CHF PEF exacerbation with generalized anasarca. His shelter supervisor is Dr. Rankin He is living with the spouse was taking care of him He is totally bedbound since he has a right hip repair surgery two years ago. Denies history of alcohol, illicit drugs and smoking history. ROS ROS Hours were reviewed, WNL except for the above mentioned in HPI Exam Vitals: Vital Signs Date Time Temp Pulse Resp B/P (MAP) Pulse Ox O2 Delivery O2 Flow Rate FiO2 01/28/25 11:00 97.9 78 12 114/50 (71) 97 2.0 N/A 01/27/25 16:07 Nasal Cannula* General: General: Generalized anasarca, alert, oriented, slightly confused, not agitated, not in acute distress, well cooperated during the physical. HEENT: HEENT: Looks paper white pale, eyelids are covered with dry mucus deposit bilaterally, Conjunctive are pink, sclerae clear, no icterus, pupil is equal in both sides, reactive to light, no ear discharge, no pharyngeal erythema or an edema, mouth and lips are dry. Neck: Neck: Supple, no JVD, no lymphadenopathy and thyromegaly. Chest: Lungs:Equal air entry on both lungs, widespread fine crackles and rhonchi bilaterally Cardiovascular: Heart: S1-S2 regular sinus rhythm and, regular rate, no gallops, no rubs, no murmurs Abdomen: Abdomen: No visible peristalsis, Bowel sounds present on auscultation, soft, nontender, no guarding, no rigidity Extremities: Extremities: No obvious deformities, 3+ pitting edema bilaterally, capillary refill intact, able to wiggle toes both sides, peripheral pulsations are intact on both sides Central Nervous System: GEOGRAPHIC INFORMATION SYSTEMS ANALYST: No focal neurological deficits, no motor and sensory weakness in all 4 extremities, could move all 4 extremities Musculoskeletal: Musculoskeletal: No joint swelling, deformities, inflammations, and no scoliosis and back tenderness Skin: Skin: Some dry skin over the extremities, redness from the chronic dermatitis over the extremities, No active skin lesions and rashes Diagnostic Data Last Recorded Lab Results: 01/28/25 0859 01/28/25 0859 Diagnostic Data: Laboratory Tests Test 01/27/25 15:16 Prothrombin Time 16.1 SECONDS (9.0-12.0) H INR International Normalized Ratio 1.6 INR Activated Partial Thromboplast Time 46 SECONDS (22-32) H Coagulation Comments Additional Plan A 80 years old male who was transferred from [facility] on dobutamine drip (4mcg/kg) with a concern of hypothermia and hypotension with progressive acute on chronic shortness of breaths over a week which was associated with generalized anasarca for further evaluation and management plan with a past medical history of CHFpEF 55-60% on Farxiga and Furosemide, T2DM, Class 3 obesity on BMI 42.5, rosacea on doxycycline , shelter supervisor is Dr. Rankin and underwent the stress test three months ago without knowing the results, orthostatic hypotension on midodrine, GERD, right hip surgery and became bed bound since last 2 years, and recent hospitalization at [facility] for CHF exacerbation/ anasarca, and treated with IV Lasix complicated with hypotension on that admission as well. # Hypothermia # Hypotension # Possible Sepsis on POA 2/ LUTI -chest x-ray showed Right PICC in satisfactory position at the junction of the subclavian vein and superior vena cava. Frontal chest radiograph demonstrates no acute osseous or superficial soft tissue abnormalities. The trachea is midline. Mild cardiomegaly. Low lung volumes bronchovascular crowding and bibasilar atelectasis. No pneumothorax, pleural effusions, or consolidations. -WBC 4.4, normal lactic acid and procalcitonin -blood pressure around 90/40 mm Hg -dobutamine was stopped for hypotension and given 1 L bolus normal saline in ER, continue IV fluids as maintenance -UA showed positive leukocyte esterase and TNTC WBC with large occult blood. -monitor for PICC line for the possible source of infection -continue IV ceftriaxone daily, continue following up with blood culture -medication reconciliation was pending and continue appropriately -continue supporting with the thermal warmer in ICU -[place] for strict I's and O's -follow up with TSH and we will consider for the possible steroid insufficiency/cortisol if no certain cause of Hypothermia and hypotension # acute on chronic CHFpEF 55-60% exacerbation # chronic generalized anasarca -he will be beneficial to consult with Dr. Rankin's and review with the previous cardiology workup -continue GDMT home medications after medication reconciliation was done -Last time 2D echocardiogram on 01/06/2025 showed LVEF 55-60%, RV moderately dilated, trace MR, TR, normal pericardium and no effusion # ANDREA on CKD stage 2 -his baseline creatinine is was around one, monitor I's and O's and [place] -please continue monitoring for the rate of EGFR declining with time -continue IV fluids # mild transaminitis with hyperbilirubinemia # pancytopenia -could be from sepsis but mild transaminitis does not agree with -hyperbilirubinemia, he will be beneficial to exclude possible cause of intravascular hemolysis lead to anemia/B12 deficiency -pancytopenia could be possibly from the excessive fluid resuscitation for hypotension/hemodilution effect CODE STATUS: Full code DVT prophylaxis: Renal dose of Eliquis Lines: PICC line GI prophylaxis: None Prognosis: Guarded in ICU Disposition: Continue medical management in ICU as per mottle lay up operator team management plan, hospitalist team will follow the patient, appreciate for letting us involved in the patient's care. Resident MD attestation: Patient was seen, examined and discussed with attending MD, Dr. Jeremias CERRATO MD Internal Medicine Resident, PGY2 [facility] Date of Service: Jan 27, 2025 Billing Provider: JESSICA MORRIS MD Common Visit Codes: 54953-[id number] INP/OBS CARE (HIGH) Inpatient Consultation Codes: 33288-[id number] CONSULT <45MIN FAUSTO CERRATO, RES Jan 28, 2025 14:03 JESSICA MORRIS MD Jan 31, 2025 08:14
--- NOTE | 2025-01-28 14:18 | PROGRESS NOTE- Residence ---
Progress Note - Resident Providers to CC Resident Creating Document: FAUSTO CERRATO RES ~ Antibiotic Timeout Antibiotic Ordered?: Yes Subjective Pt was seen at the bedside in ER before he was moved to the PCU for downgrading from the ICU level of care this morning. Objective Vital Signs Date Time Temp Pulse Resp B/P (MAP) Pulse Ox O2 Delivery O2 Flow Rate FiO2 01/28/25 11:00 97.9 78 12 114/50 (71) 97 2.0 N/A 01/27/25 16:07 Nasal Cannula* Result Diagram: 01/28/25 0859 01/28/25 0859 Vitals were stable with stable BP 119/59 mmHg, and Temp 97.7. General: Generalized anasarca, alert, oriented, slightly confused, not agitated, not in acute distress, well cooperated during the physical. HEENT: Looks paper white pale, eyelids are covered with dry mucus deposit bilaterally, Conjunctive are pink, sclerae clear, no icterus, pupil is equal in both sides, reactive to light, no ear discharge, no pharyngeal erythema or an edema, mouth and lips are dry. Neck: Supple, no JVD, no lymphadenopathy and thyromegaly. 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, no motor and sensory weakness in all 4 extremities, could move all 4 extremities Musculoskeletal: No joint swelling, deformities, inflammations, and no scoliosis and back tenderness Skin: Some dry skin over the extremities, redness from the chronic dermatitis over the extremities, No active skin lesions and rashes Coagulation Studies Laboratory Tests Test 01/27/25 15:16 Prothrombin Time 16.1 SECONDS (9.0-12.0) H INR International Normalized Ratio 1.6 INR Activated Partial Thromboplast Time 46 SECONDS (22-32) H Coagulation Comments Assessment Assessment A 80 years old male who was transferred from [facility] on dobutamine drip (4mcg/kg) with a concern of hypothermia and hypotension with progressive acute on chronic shortness of breaths over a week which was associated with generalized anasarca for further evaluation and management plan with a past medical history of CHFpEF 55-60% on Farxiga and Furosemide, T2DM, Class 3 obesity on BMI 42.5, rosacea on doxycycline , 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 He was admitted with the ICU level care for close observation and downgraded to PCU. Plan Plan # Hypothermia # Hypotension # Possible Sepsis on POA / LUTI 01/28/2025: Initiated IV vancomycin and ceftriaxone 2 g daily -normal Lactic acid and procalcitonin are at the low risk of infections though -continue close monitoring, downgraded to PCU -maintaining BP around 120/60 mm Hg, temperature 97.9 F and continue with Bear Hugger -do not restart dobutamine, cardiology Dr Rankin was consulted and appreciate it -Random cortisol levels is pending and TSH WNL 01/27/2025:-chest x-ray showed Right PICC in satisfactory position at the junction of the subclavian vein and superior vena cava. Frontal chest radiograph demonstrates no acute osseous or superficial soft tissue abnormalities. The trachea is midline. Mild cardiomegaly. Low lung volumes bronchovascular crowding and bibasilar atelectasis. No pneumothorax, pleural effusions, or consolidations. -WBC 4.4, normal lactic acid and procalcitonin -blood pressure around 90/40 mm Hg -dobutamine was stopped for hypotension and given 1 L bolus normal saline in ER, continue IV fluids as maintenance -UA showed positive leukocyte esterase and TNTC WBC with large occult blood. -monitor for PICC line for the possible source of infection -continue IV ceftriaxone daily, continue following up with blood culture -medication reconciliation was pending and continue appropriately -continue supporting with the thermal warmer in ICU -[place] for strict I's and O's -follow up with TSH and we will consider for the possible steroid insufficiency/cortisol if no certain cause of Hypothermia and hypotension # acute on chronic CHFpEF 55-60% exacerbation # chronic generalized anasarca 01/28/2025: Dr Rankin cardiology consultation was requested and appreciate it -continue His CHF GDMT and restarted gentle diuresis, IV Lasix 20 mg b.i.d. for now in the setting of ANDREA and hypotension for his congestion s/s -continue Renal dose of Apixaban 01/27/2025:-he will be beneficial to consult with Dr. 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 -his baseline creatinine is was around one, monitor I's and O's and [place] -please continue monitoring for the rate of EGFR declining with time -continue IV fluids # mild transaminitis with hyperbilirubinemia # pancytopenia # Prolonged Coag profile 01/28/2025: Not much difference changes and improvement in today values -patient denies acute abdominal pain especially on RHC -ordered ultrasound abdomen for any intra-abdominal pathology including hepatobiliary disease -daily CMP monitoring -AST:ALT - 2:1, reflected possible EtOH Induced and presented w/ hypotension with the presence of pancytopenia zane thrombocytopenia and PT APTT prolonged -Ordered USG Abd for any hepatobiliary pathology 01/27/2025:-could be from sepsis but mild transaminitis does not agree with -hyperbilirubinemia, he will be beneficial to exclude possible cause of intravascular hemolysis lead to anemia/B12 deficiency -pancytopenia could be possibly from the excessive fluid resuscitation for hypotension/hemodilution effect CODE STATUS: Full code DVT prophylaxis: Renal dose of Eliquis Lines: PICC line GI prophylaxis: None Prognosis: Guarded in ICU Disposition: Continue medical management, follow up with the random cortisol level, ultrasound abdomen, close vitals monitoring, PT eval in the setting of bed-bound for two years, and DC plan possibly discharge back to [facility]. Resident MD attestation: Patient was seen, examined and discussed with attending MD, Dr. Andrea CERRATO MD Internal Medicine Resident, PGY2 [facility] Date of Service: Jan 28, 2025 Billing Provider: SUE WANG MD, TIN, RES Jan 28, 2025 14:18
[2025-01-28 15:00] VITALS: BP 101/54; PULSE 81; RESP 17; TEMP 97; O2SAT 95
[2025-01-28 18:00] VITALS: BP 100/57; PULSE 78; RESP 15; TEMP 97.6; O2SAT 93
[2025-01-28] MEDS ORDERED: POTA-366 PO (18:01)
[2025-01-28 20:00] VITALS: RESP 15; O2SAT 93
[2025-01-28] MEDS: vancomycin/NS 1 GM ADD-VANTAGE 250 ML IV SCH (20:56)
[2025-01-28] MEDS: furosemide 20 MG/2 ML vial IV SCH (21:09)
[2025-01-28 22:00] VITALS: BP 106/64; PULSE 84; RESP 16; TEMP 97.3; O2SAT 97
[2025-01-28] MEDS: CefTRIAXone 2gm/D5W 50ml BAG 50 ML IV SCH (23:19)
[2025-01-29] VITALS (8 sets, daily range): BP systolic 106–124; BP diastolic 47–55; PULSE 63–82; RESP 15–17; TEMP 97.1–98.4; O2SAT 95–98
--- NOTE | 2025-01-29 07:50 | RADIOLOGY REPORT ---
EXAM: US Abdomen Limited, Right Upper Quadrant CLINICAL INDICATION: Mild Hyperbilirubinemia and Transaminitis TECHNIQUE: Real-time ultrasound of the right upper quadrant with image documentation. COMPARISON: US ULTRASOUND OF ABDOMEN on DOS: 01/06/25 FINDINGS: LIVER: Liver measures up to 11.9 cm. No intrahepatic bile duct dilation. GALLBLADDER: Negative Muniz's sign was reported by the medical esthetician. No gallstones. COMMON BILE DUCT: Unremarkable as visualized. No stones. No dilation. Common bile duct measures 0.26 cm in diameter. PANCREAS: Unremarkable as visualized. RIGHT KIDNEY: Unremarkable. No stones. No hydronephrosis. The right kidney measures 12.4 x 6.5 x 6.9 cm. FREE FLUID: Ascites with hepatic surface irregularity, suggesting cirrhosis. Clinical correlation is recommended. OTHER FINDINGS: . . IMPRESSION: Ascites with hepatic surface irregularity, suggesting cirrhosis. Clinical correlation is recommende d.
--- NOTE | 2025-01-29 12:08 | PROGRESS NOTE- Residence ---
Progress Note - Resident Providers to CC Resident Creating Document: FAUSTO CERRATO RES ~ Antibiotic Timeout Antibiotic Ordered?: Yes Subjective Patient showed significant improvement with alert conscious and responding questions appropriately with no shortness of breaths and sitting comfortably. Pt is fully orientated x 4. BP 113/52 mm Hg, temperature 97.6 F. Objective Vital Signs Date Time Temp Pulse Resp B/P (MAP) Pulse Ox O2 Delivery O2 Flow Rate FiO2 01/29/25 06:30 75 01/29/25 02:00 97.3 16 113/52 (72) 96 Nasal Cannula 2.0 01/28/25 11:00 N/A Result Diagram: 01/28/25 0859 01/28/25 0859 Vitals were stable with stable BP 113/52 mm Hg, temp 97.3 F. General: Generalized anasarca, alert, oriented, Not confused, not agitated, not in acute distress, well cooperated during the physical. HEENT: Looks paper white pale, eyelids are covered with dry mucus deposit bilaterally, Conjunctive are pink, sclerae clear, no icterus, pupil is equal in both sides, reactive to light, no ear discharge, no pharyngeal erythema or an edema, mouth and lips are dry. Neck: Supple, no JVD, no lymphadenopathy and thyromegaly. 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, no motor and sensory weakness in all 4 extremities, could move all 4 extremities Musculoskeletal: No joint swelling, deformities, inflammations, and no scoliosis and back tenderness Skin: Some dry skin over the extremities, redness from the chronic dermatitis over the extremities, No active skin lesions and rashes Coagulation Studies Laboratory Tests Test 01/27/25 15:16 Prothrombin Time 16.1 SECONDS (9.0-12.0) H INR International Normalized Ratio 1.6 INR Activated Partial Thromboplast Time 46 SECONDS (22-32) H Coagulation Comments Assessment Assessment A 80 years old male who was transferred from [facility] on dobutamine drip (4mcg/kg) with a concern of hypothermia and hypotension with progressive acute on chronic shortness of breaths over a week which was associated with generalized anasarca for further evaluation and management plan with a past medical history of CHFpEF 55-60% on Farxiga and Furosemide, T2DM, Class 3 obesity on BMI 42.5, rosacea on doxycycline , 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 He was admitted with the ICU level care for close observation and downgraded to PCU. Plan Plan # Hypothermia # Hypotension # Possible Sepsis on POA / LUTI Vs Skin infections 01/29/2025: Improved in hypothermia and hypotension today without needing bear hugger. Well alert and orientated x 4. -continue IV antibiotics vancomycin and ceftriaxone Day 2 -random cortisol level is pending 01/28/2025: Initiated IV vancomycin and ceftriaxone 2 g daily -normal Lactic acid and procalcitonin are at the low risk of infections though -continue close monitoring, downgraded to PCU -maintaining BP around 120/60 mm Hg, temperature 97.9 F and continue with Bear Hugger -do not restart dobutamine, cardiology Dr Rankin was consulted and appreciate it -Random cortisol levels is pending and TSH WNL 01/27/2025:-chest x-ray showed Right PICC in satisfactory position at the junction of the subclavian vein and superior vena cava. Frontal chest radiograph demonstrates no acute osseous or superficial soft tissue abnormalities. The trachea is midline. Mild cardiomegaly. Low lung volumes bronchovascular crowding and bibasilar atelectasis. No pneumothorax, pleural effusions, or consolidations. -WBC 4.4, normal lactic acid and procalcitonin -blood pressure around 90/40 mm Hg -dobutamine was stopped for hypotension and given 1 L bolus normal saline in ER, continue IV fluids as maintenance -UA showed positive leukocyte esterase and TNTC WBC with large occult blood. -monitor for PICC line for the possible source of infection -continue IV ceftriaxone daily, continue following up with blood culture -medication reconciliation was pending and continue appropriately -continue supporting with the thermal warmer in ICU -[place] for strict I's and O's -follow up with TSH and we will consider for the possible steroid insufficiency/cortisol if no certain cause of Hypothermia and hypotension # acute on chronic CHFpEF 55-60% exacerbation # chronic generalized anasarca 01/29/2025: Cardiology recommended to continue gentle diuresis as tolerated and had a hx of intolerance to the GDMT 2/2 from hypotension, and to consult with oncall cardiology if urgent. -will f/up w/ Dr Rankin on Friday for the tests done at his office, including mild carotid stenosis. 01/28/2025: Dr Rankin cardiology consultation was requested and appreciate it -continue His CHF GDMT and restarted gentle diuresis, IV Lasix 20 mg b.i.d. for now in the setting of ANDREA and hypotension for his congestion s/s -continue Renal dose of Apixaban 01/27/2025:-he will be beneficial to consult with Dr. 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 -his baseline creatinine is was around one, monitor I's and O's and [place] -please continue monitoring for the rate of EGFR declining with time -continue IV fluids # mild transaminitis with hyperbilirubinemia # pancytopenia # Prolonged Coag profile 01/29/2025: Bilirubin slowly trending down, elevated AST today 90. - Ultrasound abdomen showed Ascites with hepatic surface irregularity, suggesting cirrhosis. Clinical correlation is recommended. Pending Labs. 01/28/2025: Not much difference changes and improvement in today values -patient denies acute abdominal pain especially on RHC -ordered ultrasound abdomen for any intra-abdominal pathology including hepatobiliary disease -daily CMP monitoring -AST:ALT - 2:1, reflected possible EtOH Induced and presented w/ hypotension with the presence of pancytopenia zane thrombocytopenia and PT APTT prolonged -Ordered USG Abd for any hepatobiliary pathology 01/27/2025:-could be from sepsis but mild transaminitis does not agree with -hyperbilirubinemia, he will be beneficial to exclude possible cause of intravascular hemolysis lead to anemia/B12 deficiency -pancytopenia could be possibly from the excessive fluid resuscitation for hypotension/hemodilution effect CODE STATUS: Full code DVT prophylaxis: Renal dose of Eliquis Lines: PICC line GI prophylaxis: None Prognosis: Guarded in ICU Disposition: Nephrology consultation tomorrow, Continue medical management, follow up with the random cortisol level, close vitals monitoring, wound and skin care, PT eval in the setting of bed-bound for two years, and DC plan possibly discharge back to [facility]. Resident MD attestation: Patient was seen, examined and discussed with attending , Dr. Andrea CERRATO MD Internal Medicine Resident, PGY2 [facility] Date of Service: Jan 29, 2025 Billing Provider: SUE WANG MD, TIN, RES Jan 29, 2025 12:07
[2025-01-29] MEDS: acetaminophen 325mg tablet PO PRN (13:29)
[2025-01-29 14:16] LABS: BASOPHILS % (AUTO) 0.6 % (0-1); EOSINOPHILS # (AUTO) 0.4 X10'3 (0-0.9); HEMATOCRIT 35.4 % (42.0-52.0); HEMOGLOBIN 12.2 g/dl (14.0-17.9); LYMPHOCYTES # (AUTO) 0.7 X10'3 (1.1-4.8); MEAN CORPUSCULAR HEMOGLOBIN 36.5 PG (27.0-31.0); MEAN CORPUSCULAR HGB CONC 34.5 g/dL (33.0-36.5); MEAN CORPUSCULAR VOLUME 105.9 FL (78-98); MEAN PLATELET VOLUME 7.3 FL (7.4-10.4); MONOCYTES # (AUTO) 0.7 X10'3 (0-0.9); MONOCYTES % (AUTO) 11.8 % (2-12); NEUTROPHILS % (AUTO) 68.6 % (42-75); PLATELET COUNT 119 X10'3 (140-440); RED BLOOD COUNT 3.34 X10'6 (4.70-6.10); RED CELL DISTRIBUTION WIDTH 16.8 % (11.5-14.5); WHITE BLOOD COUNT 5.9 X10'3 (4.5-11.0)
[2025-01-29 14:38] LABS: ALANINE AMINOTRANSFERASE 33 U/L (12-78); ALBUMIN 2.1 G/DL (3.4-5.0); ALBUMIN/GLOBULIN RATIO 0.5 (1.1-1.5); ALKALINE PHOSPHATASE 149 IU/L (46-116); ANION GAP 3 (8-16); ASPARTATE AMINO TRANSFERASE 90 U/L (10-37); BILIRUBIN,TOTAL 2.1 MG/DL (0.1-1.0); BLOOD UREA NITROGEN 26 MG/DL (7-18); BUN/CREATININE RATIO 20.3 (10.0-20.0); CALCIUM 8.2 MG/DL (8.5-10.1); CHLORIDE 102 MMOL/L (99-107); CREATININE 1.28 MG/DL (0.60-1.10); GLUCOSE 152 MG/DL (70-104); POTASSIUM 3.5 MMOL/L (3.5-5.1); SODIUM 138 MMOL/L (135-145); eCRCL 60 ML/MIN; eGFR 54 ML/MIN
[2025-01-30] VITALS (8 sets, daily range): BP systolic 99–167; BP diastolic 32–83; PULSE 55–86; RESP 13–20; TEMP 96.8–97.5; O2SAT 91–98
[2025-01-30 07:33] LABS: BASOPHILS # (AUTO) 0.1 X10'3 (0-0.2); BASOPHILS % (AUTO) 2.4 % (0-1); EOSINOPHILS # (AUTO) 0.5 X10'3 (0-0.9); EOSINOPHILS % (AUTO) 10.2 % (0-6); HEMATOCRIT 35.2 % (42.0-52.0); HEMOGLOBIN 12.3 g/dl (14.0-17.9); LYMPHOCYTES # (AUTO) 0.7 X10'3 (1.1-4.8); LYMPHOCYTES % (AUTO) 14.9 % (21-51); MEAN CORPUSCULAR HEMOGLOBIN 36.9 PG (27.0-31.0); MEAN CORPUSCULAR HGB CONC 34.9 g/dL (33.0-36.5); MEAN CORPUSCULAR VOLUME 105.6 FL (78-98); MEAN PLATELET VOLUME 7.4 FL (7.4-10.4); MONOCYTES # (AUTO) 0.6 X10'3 (0-0.9); NEUTROPHILS # (AUTO) 2.8 X10'3 (1.8-7.7); NEUTROPHILS % (AUTO) 59.5 % (42-75); PLATELET COUNT 109 X10'3 (140-440); RED BLOOD COUNT 3.34 X10'6 (4.70-6.10); RED CELL DISTRIBUTION WIDTH 16.8 % (11.5-14.5); WHITE BLOOD COUNT 4.7 X10'3 (4.5-11.0)
[2025-01-30 07:57] LABS: ALANINE AMINOTRANSFERASE 34 U/L (12-78); ALBUMIN/GLOBULIN RATIO 0.5 (1.1-1.5); ALKALINE PHOSPHATASE 144 IU/L (46-116); ANION GAP 4 (8-16); ASPARTATE AMINO TRANSFERASE 80 U/L (10-37); BILIRUBIN,TOTAL 2.2 MG/DL (0.1-1.0); BLOOD UREA NITROGEN 24 MG/DL (7-18); BUN/CREATININE RATIO 19.2 (10.0-20.0); CHLORIDE 102 MMOL/L (99-107); CREATININE 1.25 MG/DL (0.60-1.10); GLUCOSE 110 MG/DL (70-104); POTASSIUM 3.7 MMOL/L (3.5-5.1); SODIUM 139 MMOL/L (135-145); TOTAL CARBON DIOXIDE 33.5 MMOL/L (24-32); TOTAL PROTEIN 5.8 G/DL (6.4-8.2); eCRCL 61 ML/MIN; eGFR 56 ML/MIN
[2025-01-30 12:52] LABS: ALANINE AMINOTRANSFERASE 33 U/L (12-78); ALBUMIN 1.9 G/DL (3.4-5.0); ALBUMIN/GLOBULIN RATIO 0.5 (1.1-1.5); ALKALINE PHOSPHATASE 145 IU/L (46-116); ASPARTATE AMINO TRANSFERASE 81 U/L (10-37); BILIRUBIN,DIRECT 0.9 MG/DL (0-0.3); BILIRUBIN,TOTAL 1.8 MG/DL (0.1-1.0); TOTAL PROTEIN 5.6 G/DL (6.4-8.2)
--- NOTE | 2025-01-30 18:21 | PROGRESS NOTE- Residence ---
Progress Note - Resident Providers to CC Resident Creating Document: JACINTOSWEETIE RIVERA, RES ~ Antibiotic Timeout Antibiotic Ordered?: Yes Subjective Patient was seen and examined at the bedside. and daughter with the bedside. Patient ultrasound came back with findings of cirrhosis. Inquired about history of alcohol use, hepatitis, IV drug use, STDs, family history of liver disease. Patient in his family denies all the above. Ordered hepatitis panel. Patient's family seems concerned about his transfer back to [facility]. They would want to find a different place for him at discharge including options like home with home health. Answered all the questions to the family's satisfaction and explained about the prognosis of his condition. Objective Vital Signs Date Time Temp Pulse Resp B/P (MAP) Pulse Ox O2 Delivery O2 Flow Rate FiO2 01/30/25 07:14 97.4 75 16 106/32 (56) 97 Nasal Cannula 2.0 01/29/25 20:00 N/A Result Diagram: 01/30/25 0700 01/30/25 0700 General: Generalized anasarca, alert, oriented, Not confused, not agitated, not in acute distress, well cooperated during the physical. HEENT: Looks paper white pale, eyelids are covered with dry mucus deposit bilaterally, Conjunctive are pink, sclerae clear, no icterus, pupil is equal in both sides, reactive to light, no ear discharge, no pharyngeal erythema or an edema, mouth and lips are dry. Neck: Supple, no JVD, no lymphadenopathy and thyromegaly. 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, no motor and sensory weakness in all 4 extremities, could move all 4 extremities Musculoskeletal: No joint swelling, deformities, inflammations, and no scoliosis and back tenderness Skin: Some dry skin over the extremities, redness from the chronic dermatitis over the extremities, No active skin lesions and rashes Coagulation Studies Laboratory Tests Test 01/27/25 15:16 Prothrombin Time 16.1 SECONDS (9.0-12.0) H INR International Normalized Ratio 1.6 INR Activated Partial Thromboplast Time 46 SECONDS (22-32) H Coagulation Comments Assessment Assessment A 80 years old male who was transferred from [facility] on dobutamine drip (4mcg/kg) with a concern of hypothermia and hypotension with progressive acute on chronic shortness of breaths over a week which was associated with generalized anasarca for further evaluation and management plan with a past medical history of CHFpEF 55-60% on Farxiga and Furosemide, T2DM, Class 3 obesity on BMI 42.5, rosacea on doxycycline , 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 He was admitted with the ICU level care for close observation and downgraded to PCU. Plan Plan # Hypothermia # Hypotension # Possible Sepsis on POA 2/2 LUTI Vs Skin infections -continue IV antibiotics vancomycin and ceftriaxone Day 3 -WBC 4.4, normal lactic acid and procalcitonin -blood pressure around 90/40 mm Hg -dobutamine was stopped for hypotension and given 1 L bolus normal saline in ER, continue IV fluids as maintenance -UA showed positive leukocyte esterase and TNTC WBC with large occult blood. -monitor for PICC line for the possible source of infection -continue IV ceftriaxone daily, continue following up with blood culture -medication reconciliation was pending and continue appropriately -continue supporting with the thermal warmer in ICU -[place] for strict I's and O's -TSH is within normal limits # acute on chronic CHFpEF 55-60% exacerbation # chronic generalized anasarca -continue GDMT home medications -Last time 2D echocardiogram on 01/06/2025 showed LVEF 55-60%, RV moderately dilated, trace MR, TR, normal pericardium and no effusion # ANDREA on CKD stage 2 Slowly normalizing to his baseline, PICC line placement needed because of his generalized edematous body habitus for the labs Creatinine improving -monitor I's and O's # mild transaminitis with hyperbilirubinemia # pancytopenia # Prolonged Coag profile - Ultrasound abdomen showed Ascites with hepatic surface irregularity, suggesting cirrhosis. Clinical correlation is recommended. Pending Labs. -AST:ALT - 2:1, MCV high, reflected possible EtOH Induced and presented w/ hypotension with the presence of pancytopenia zane thrombocytopenia and PT APTT prolonged -Hepatitis panel ordered. Follow up CODE STATUS: Full code DVT prophylaxis: Renal dose of Eliquis Lines: PICC line GI prophylaxis: None Prognosis: Guarded in ICU Disposition: Continue medical management, follow up with the random cortisol level, close vitals monitoring, wound and skin care, PT eval in the setting of bed-bound for two years, and DC plan possibly discharge back to [facility]. Sweetie Rivera MD Internal Medicine Resident, PGY1 [facility] Date of Service: Jan 30, 2025 Billing Provider: SUE WANG MD, DEEPIKA BANDI, RES Jan 30, 2025 18:21
[2025-01-30] MEDS: VANCOMYCIN LEVEL IV ONE (21:39)
[2025-01-30] MEDS: VANCOmycin 1250MG/NS 250ml Bag 250 ML IV SCH (23:55)
[2025-01-31 02:00] VITALS: BP_SYST 103; BP_SYST 110; BP_DIAS 65; BP_DIAS 71; PULSE 71; PULSE 73; RESP 13; RESP 16; TEMP 97.6; TEMP 97.8; O2SAT 96; O2SAT 98
[2025-01-31 07:00] VITALS: BP 101/42; PULSE 72; RESP 16; TEMP 97.9; O2SAT 97
[2025-01-31 07:21] LABS: EOSINOPHILS # (AUTO) 0.5 X10'3 (0-0.9); EOSINOPHILS % (AUTO) 10.1 % (0-6); HEMATOCRIT 36.9 % (42.0-52.0); HEMOGLOBIN 12.8 g/dl (14.0-17.9); LYMPHOCYTES # (AUTO) 0.8 X10'3 (1.1-4.8); MEAN CORPUSCULAR HEMOGLOBIN 36.9 PG (27.0-31.0); MEAN CORPUSCULAR HGB CONC 34.7 g/dL (33.0-36.5); MEAN CORPUSCULAR VOLUME 106.4 FL (78-98); MEAN PLATELET VOLUME 7.8 FL (7.4-10.4); MONOCYTES # (AUTO) 0.6 X10'3 (0-0.9); MONOCYTES % (AUTO) 12.4 % (2-12); NEUTROPHILS # (AUTO) 2.6 X10'3 (1.8-7.7); NEUTROPHILS % (AUTO) 58.5 % (42-75); PLATELET COUNT 119 X10'3 (140-440); RED BLOOD COUNT 3.47 X10'6 (4.70-6.10); RED CELL DISTRIBUTION WIDTH 17.2 % (11.5-14.5); WHITE BLOOD COUNT 4.5 X10'3 (4.5-11.0)
[2025-01-31 07:40] LABS: ALANINE AMINOTRANSFERASE 34 U/L (12-78); ALBUMIN 2.1 G/DL (3.4-5.0); ALBUMIN/GLOBULIN RATIO 0.5 (1.1-1.5); ALKALINE PHOSPHATASE 172 IU/L (46-116); ANION GAP 4 (8-16); ASPARTATE AMINO TRANSFERASE 80 U/L (10-37); BLOOD UREA NITROGEN 23 MG/DL (7-18); BUN/CREATININE RATIO 21.1 (10.0-20.0); CALCIUM 8.1 MG/DL (8.5-10.1); CHLORIDE 102 MMOL/L (99-107); CREATININE 1.09 MG/DL (0.60-1.10); GLUCOSE 116 MG/DL (70-104); POTASSIUM 3.8 MMOL/L (3.5-5.1); SODIUM 140 MMOL/L (135-145); TOTAL CARBON DIOXIDE 34.2 MMOL/L (24-32); eCRCL 70 ML/MIN; eGFR 65 ML/MIN
[2025-01-31 08:00] VITALS: RESP 16; O2SAT 98
[2025-01-31 11:00] VITALS: BP 109/57; PULSE 69; RESP 13; TEMP 97.1; O2SAT 98
[2025-01-31] MEDS ORDERED: lactulose 20gm/30ml cup PO PRN (12:00)
[2025-01-31 15:00] VITALS: BP 101/46; PULSE 64; RESP 16; TEMP 97; O2SAT 98
--- NOTE | 2025-01-31 17:00 | DISCHARGE SUMMARY-Residence ---
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 # chronic generalized anasarca # ANDREA on CKD stage 2 # Cirrhosis of liver with mild transaminitis and hyperbilirubinemia # pancytopenia Operations\Procedures: None Consultants: Dr Rankin, cardiology team Complications: None Condition on DC: Stable Discharge Summary: A 80 years old male who was transferred from [facility] on dobutamine drip (4mcg/kg) with a concern of hypothermia and hypotension with progressive acute on chronic shortness of breaths over a week which was associated with generalized anasarca for further evaluation and management plan with a past medical history of CHFpEF 55-60% on Farxiga and Furosemide, T2DM, Class 3 obesi ty on BMI 42.5, rosacea on doxycycline, 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 Hospital course: He was admitted with the ICU level care for close observation and downgraded to PCU. His blood pressure was around 90/40 mm Hg, dobutamine was stopped for hypotension and given 1 L bolus normal saline in ER, continue IV fluids as maintenance. His UA showed positive leukocyte esterase and TNTC WBC with large occult blood. He was given with IV ceftriaxone daily and IV Vancomycin for five doses he has a no growth of blood cultures for three days except for the MRSA nasal screen positive. For his hypothermia, he was given with Bear hugger only for two days after admission, and maintaining his body temperature around 97.6 F. He was maintaining BP around 120/60 mm Hg. His TSH 0.56 WNL, and could not happen to investigate for his random Cortisol levels during this admission. He was consulted by Dr Rankin Cardiology team and recommended to continue GDMT for CHFpEF including gentle diuresis with IV Lasix 20 mg b.i.d.. Last time 2D echocardiogram on 01/06/2025 showed LVEF 55-60%, RV moderately dilated, trace MR, TR, normal pericardium and no effusion. All of his home medications including renal dose of apixaban well continue appropriately after medication reconciliation was reviewed and done. He needs PICC line for the blood works daily because of his chronic generalized anasarca body habitus. He had a hx of intolerance to the GDMT 2/2 from hypotension abd mild carotid stenosis. His Ultrasound abdomen showed Ascites with hepatic surface irregularity, suggesting cirrhosis. Clinical correlation is recommended. His AST:ALT - 2:1, reflected possible EtOH Induced Vs Infectious hepatitis Vs GOLDEN/MASH etiology, for which Hepatitis viral panel was ordered which was not managed to obtain before discharged because of his anasacar. DVT prophylaxis was also achieved with his renal dosage of Eliquis daily. Today, all of his labs were reviewed WNL with WBC 4.5, hemoglobin 12.8, hematocrit 36.9, platelet count 119, serum sodium 140, potassium 3.8, chloride 102, BUN 23, creatinine 1.09, serum glucose 116 total bilirubin two, AST 80, ALT 34, alkaline phosphatase 172. All of his questions and concerns were addressed with the best knowledge of our team before discharge. All of his vitals were stable at the moment with temp 97.9 F, MI 70/minute, RR 12/minute, BP 114/50 mm Hg, pulse oximetry 97% on 2 L nasal c annula. On exam, General: Generalized anasarca, alert, oriented, Not confused, not agitated, not in acute distress, well cooperated during the physical. HEENT: Looks paper white pale, eyelids are covered with dry mucus deposit bilaterally, Conjunctive are pink, sclerae clear, no icterus, pupil is equal in both sides, reactive to light, no ear discharge, no pharyngeal erythema or an edema, mouth and lips are dry. Neck: Supple, no JVD, no lymphadenopathy and thyromegaly. Lungs:Equal air entry on both lungs, widespread fine crackles and rhonchi bilaterally are getting better Heart: S1-S2 regular sinus rhythm and, regular rate, no gallops, no rubs, no murmurs Abdomen: No visible peristalsis, Bowel sounds present on auscultation, soft, nontender, no guarding, no rigidity Extremities: No obvious deformities, 3+ pitting edema bilaterally, capillary refill intact, able to wiggle toes both sides, peripheral pulsations are intact on both sides COLOR WORKER: No focal neurological deficits, no motor and sensory weakness in all 4 extremities, could move all 4 extremities Musculoskeletal: No joint swelling, deformities, inflammations, and no scoliosis and back tenderness Skin: Some dry skin over the extremities, redness from the chronic dermatitis over the extremities, No active skin lesions and rashes Discharge instructions: -please return to ER for any emergency conditions including acute on chronic shortness of breaths from CHF exacerbation, severe hypothermia and hypotension, chest pain/pressure/discomfort, altered mental status etc. -please follow up with PCP, Cardiology Dr. Rankin in 1-2 weeks after discharge for further management. -follow up with hepatitis/liver panel for the etiology of cirrhosis of liver, and further management -continue IV antibiotics for the possible sepsis present on admission sc part of hypothermia -continue Lasix therapy for CHF exacerbation. -recommended to investigate Random cortisol levels, hepatitis panel as they were not managed to obtain before discharge because of his generalized anasarca body habitus. Resident MD attestation: Patient was seen, examined and discussed with attending MD, Dr. Andrea CERRATO MD Internal Medicine Resident, PGY2 [facility] *Problems/Diagnosis: (1) CHF exacerbation Status: Resolved (2) Anasarca Status: Chronic (3) Hypothermia Status: Resolved Total Time Spent on D/C: > 30 Minutes Date of Service: Jan 31, 2025 Billing Provider: SUE WANG MD Problem Qualifiers (1) Hypothermia: Encounter type: initial encounter Qualified Codes: T68.XXXA - Hypothermia, initial encounter FAUSTO CERRATO, RES Jan 31, 2025 16:06
[2025-01-31] MEDS ORDERED: lactulose 20gm/30ml cup PO SCH (20:00)
[2025-02-01] MEDS ORDERED: VANCOMYCIN LEVEL IV ONE (08:30)
== END 2025-01-31 17:18 | DRG 871 ==
LOC: ER 14:21 → ED HOLD 19:12 → PCU 3S 01-28 12:30
PROVIDERS: ADMIT Internal Medicine Critical Care Medicine; ATTEND Internal Medicine Critical Care Medicine
DX: A41.9 Sepsis, unspecified organism (principal); I50.33 Acute on chronic diastolic (congestive) heart failure; N17.9 Acute kidney failure, unspecified; N39.0 Urinary tract infection, site not specified; D61.818 Other pancytopenia; K74.60 Unspecified cirrhosis of liver; N18.2 Chronic kidney disease, stage 2 (mild); T68.XXXA Hypothermia, initial encounter; E11.9 Type 2 diabetes mellitus without complications; K21.9 Gastro-esophageal reflux disease without esophagitis; R74.01 Elevation of levels of liver transaminase levels; D51.8 Other vitamin B12 deficiency anemias; E80.6 Other disorders of bilirubin metabolism; X31.XXXA Exposure to excessive natural cold, initial encounter; Z74.01 Bed confinement status
CPT/HCPCS: 36415; 71045; 76700; 80048; 80053; 80076; 80202; 81001; 82948; 83605; 83880; 84145; 84443; 84484; 85025; 85610; 85730; 87040; 87081; 93005; 96365; 96367; 97110; 97161; 97530; 99291; A6213; A6250; A6455; A6590; C1758; G0378; J0696; J1250; J1938; J2270; J3370; J7030; J7040

== ENCOUNTER 2025-02-09 02:54 | Inpatient (IN) | payer MEDICARE ==
[~2025-02-09] VITALS: Ht 182.9 cm; Wt 157.7 kg
[~2025-02-09 02:54] MED LIST changes: +POTA-366 PO; +TOBR5DRO7 EACHEYE
--- NOTE | 2025-02-09 03:03 | ELECTROCARDIOGRAPH REPORT ---
[facility] Test Date: 2025-02-09 Test Time: 02:58:47 Pat Name: VAL FLEMING Department: [facility]-ER Patient ID: [facility]-[id number] Room: [place] [address] Gender: M Physical Scientist: RENETTA : 1945 Requested By: CAROLYN JOHN Order Number: [id number] Reading MD: Dr. King Zheng Measurements Intervals [place] Rate: 82 P: 0 WI: 0 QRS: -26 QRSD: 116 T: 117 QT: 413 QTc: 483 Interpretive Statements Accelerated junctional rhythm Nonspecific intraventricular conduction delay Extensive anterior infarct, old Electronically Signed On 02-18-2025 18:43:[address] King Zheng Please click the below link to view image of tracing.
--- NOTE | 2025-02-09 03:13 | Physician Documentation ---
History of Present Illness ~ Chief Complaint: ALOC Stated Complaint: ALOC Time Seen by MD: 02:59 Primary Medical Doctor: NATANAEL Seymour HPI Patient presented to the emergency room for evaluation of altered mental status sent from [facility]. Patient has been admitted here recently for CHF exacerbation 2 times including dobutamine drip to ICU. Per records patient does not walk and it was reported that last time known normal was 10 hours prior to arrival. History limited secondary to patient's clinical condition Medication Reconciliation Allergies: Coded Allergies: No Known Allergies (Unverified , 01/27/25) Scheduled Acyclovir 5% Cream* (Zovirax 5% Cream*), 1 APPLIC TP HS, (Reported) Apixaban (Eliquis), 1 TAB PO Q12H, (Reported) Cholecalciferol (Vitamin D), 2 CAP PO DAILY, (Reported) Dapagliflozin Propanediol (Farxiga), 1 TAB PO DAILY, (Reported) Furosemide (Lasix), 20 MG IV BID, (Reported) Midodrine Hcl (Midodrine Hcl), 1 TAB PO BID, (Reported) Nystatin/Triamcin Cream* (Mycolog Cream*), 1 APPLIC TOP Q12H, (Reported) Omeprazole Magnesium (Prilosec Otc), 1 TAB PO DAILY, (Reported) Potassium Chloride (Potassium Chloride), 1 TAB PO DAILY, (Reported) Scheduled PRN Emollient Combination No.110 (Eucerin Intensive Repair), 1 APPLIC TP BID PRN for dry skin, (Reported) Discontinued Medications Cholecalciferol (Vitamin D3) (Vitamin D), 50 MCG PO DAILY, (Reported) Discontinued Reason: patient no longer taking Doxycycline Monohydrate (Doxycycline), 100 MG PO DAILY, (Reported) Discontinued Reason: patient no longer taking Furosemide (Furosemide), 1 TAB PO BID, (Reported) Discontinued Reason: patient no longer taking Tobramycin/Dexamethasone (Tobramycin-Dexameth Ophth Susp), MER, (Reported) Discontinued Reason: patient no longer taking Past Medical History Past Medical History: Congestive Heart Failure, GERD, Diabetes Review of Systems ROS Review of systems limited secondary to patient's clinical condition Physical Exam Vital Signs: Heart Rate: 83, Respiratory Rate: 10, BP: 104/54, Pulse Oximetry: 96, Weight: 157.700 Oxygen Flow Rate: 2.0 Physical Exam General: Patient is obtunded, we will react to pain with groaning but does not localize Head: Normocephalic and atraumatic. Eyes: Conjunctival normal. EOMI. PERRL. ENT: Mucous membranes moist. Neck: Supple, trachea is midline. Chest: Clear to auscultation bilaterally without rales, rhonchi, or wheezes. There is no accessory muscle use or retractions. Cardiac: RRR without murmurs, gallops, or rubs. Abd: Soft, nondistended, nontender, with normoactive bowel sounds. No guarding, rebound, or rigidity. Extremities: Normal strength. Normal range of motion. 4+ pitting edema bilaterally Progress Progress Note Patient is complicated with multiple comorbid conditions and is full code. I feel patient's care is to complex for the floor and I have paged out the senior bookkeeper. Time 5:40 a.m. Results/Orders Results/Orders Orders - DRAKE DELGADO MD Chest,Single View (02/09/25 03:31) Monitor (02/09/25 02:57) Saline Lock (02/09/25 02:57) Oxygen (02/09/25 02:57) Culture Blood (02/09/25 02:57) Straight Cath For Urine Sample (02/09/25 02:57) Abg (Arterial Blood Gas) (02/09/25 03:01) Ct Head (02/09/25 03:32) Covid19 Binax Poc Result Entry (02/09/25 03:38) Cult Urine + [place] [facility] (02/09/25 04:46) Page Hospitalist (02/09/25 04:59) Fill Out Med Reconciliation (02/09/25 04:59) Completed Orders - DARKE DELGADO MD Chest,Single View (02/09/25 03:31) Cbc/Diff (02/09/25 02:57) BMP (02/09/25 02:57) PBNP (02/09/25 02:57) Electrocardiogram (02/09/25 02:57) Hs Troponin I W Calculations (02/09/25 02:57) Hs Troponin I W Calculations (02/09/25 04:57) Hs Troponin I W Calculations (02/09/25 05:57) Procalcitonin (02/09/25 02:57) Lacticsepsis (02/09/25 02:57) Ct Head (02/09/25 03:32) Ceftriaxone 2gm/D5w 50ml Bag (Rocephin 2 (02/09/25 04:10) Normal Saline 1000ml (Sodium Chloride 10 (02/09/25 04:10) Ua W/Microscopic, Cult If Ind (02/09/25 04:06) Drug Screen, Urine (02/09/25 04:18) * (A) Napier- Protocol * Q12H@07,19 (02/09/25 04:21) Ammonia (02/09/25 04:24) Lactic,2hr (02/09/25 04:33) Vital Signs 02/09/25 02/09/25 02/09/25 02/09/25 02:57 03:32 03:36 04:22 Temp 94.5 Pulse 83 80 83 Resp 10 14 15 13 B/P (MAP) 104/54 116/50 (72) 113/62 (79) Pulse Ox 96 96 97 O2 Flow Rate 2.0 2.0 2.0 02/09/25 04:59 Temp 94.7 Pulse 83 Resp 16 B/P (MAP) 114/57 (76) Pulse Ox 97 O2 Flow Rate 2.0 Laboratory Tests Test 02/09/25 03:05 02/09/25 03:12 02/09/25 03:41 02/09/25 04:06 White Blood Count 8.7 Red Blood Count 3.10 L Hemoglobin 11.5 L Hematocrit 32.9 L Mean Corpuscular Volume 106.1 H Mean Corpuscular Hemoglobin 37.2 H Mean Corpuscular Hemoglobin Concent 35.0 Red Cell Distribution Width 17.6 H Platelet Count 156 Mean Platelet Volume 7.0 L Neutrophils (%) (Auto) 83.4 H Lymphocytes (%) (Auto) 7.8 L Monocytes (%) (Auto) 6.9 Eosinophils (%) (Auto) 1.2 Basophils (%) (Auto) 0.7 Neutrophils # (Auto) 7.3 Lymphocytes # (Auto) 0.7 L Monocytes # (Auto) 0.6 Eosinophils # (Auto) 0.1 Basophils # (Auto) 0.1 CBC Comment Sodium Level 136 Potassium Level 5.0 Chloride Level 101 Carbon Dioxide Level 30.4 Anion Gap 5 L Blood Urea Nitrogen 29 H Creatinine 1.40 H Estimated GFR/1.73 m2 49 BUN/Creatinine Ratio 20.7 H Glucose Level 108 H Lactic Acid Level 3.1 H Calcium Level 8.6 Troponin I High Sensitivity 12 Pro-B-Type Natriuretic Peptide 1292 H Albumin 2.3 L Procalcitonin 0.34 Chemistry Comments Blood Gas Specimen Type Arterial Blood Gas Puncture Site Lr O2 Saturation 95.5 Arterial Blood pH (Temp corrected) 7.548 H Arterial Blood pCO2 (Temp correct) 30.2 L Arterial Blood pO2 (Temp corrected) 72.4 L Arterial Blood PO2/FiO2 Ratio 2.67 Arterial Blood HCO3 25.8 Arterial Blood Base Excess 3.8 H Arterial Blood Oxyhemoglobin 94.9 Arterial Blood Carboxyhemoglobin 0.3 L Arterial Blood Methemoglobin 0.3 Arterial Blood Deoxyhemoglobin 4.5 Willy Test Positive Blood Gas Hemoglobin 12.3 L Blood Gas Temperature 36.5 Blood Gas Modality Nasal cannula FiO2 28.0 SARS-CoV-2 Antigen (Rapid) Negative Urine Specimen Description Napier cath Urine Color Yellow Urine Clarity Cloudy Urine pH 6.0 Urine Specific [place] 1.020 Urine Protein Trace Urine Glucose (UA) 500 H Urine Ketones 15 H Urine Occult Blood Large H Urine Nitrite Negative Urine Bilirubin Small Urine Urobilinogen 2.0 H Urine Leukocyte Esterase Small H Urine RBC 10-20 Urine WBC 20-30 H Urine Squamous Epithelial Cells Few Urine Bacteria 1+ Urine Culture Indicated Indicated Volume Urine Centrifuged 10 ml Urine Comment Urine Opiates Screen Negative Urine Methadone Screen Negative Urine Fentanyl Screen Negative Urine Barbiturates Screen Negative Urine Phencyclidine Screen Negative Urine Amphetamines Screen Negative Urine Benzodiazepines Screen Negative Urine Cocaine Screen Negative Urine Cannabinoids Screen Negative Drug Screen Comment Test 02/09/25 04:50 02/09/25 05:22 Lactic Acid Level 3.4 H Ammonia 94 H Troponin I High Sensitivity 11 Troponin I High Sens Percent Delta 8 Troponin I Hi Sens Absolute Change -1 Glucometer 117 H Microbiology Date/Time Source Procedure Growth Status 02/09/25 04:46 Urine Napier Cath Urine Culture - Preliminary Culture received. Resulted Medical Decision Making Findings Patient presented to the emergency room with altered mental status. Differentials include but are not limited to metabolic encephalopathy, urinary tract infection, hypercarbia, pneumonia, stroke therefore emergent labs and imaging indicated. CT scan of head is reassuring as his chest x-ray. The patient does have a urinary tract infection. IV antibiotics has been initiated. Noted hyperammonemia as well. Given patient's very complicated medical history senior bookkeeper has been consulted Departure Admitted to Inpatient Unit: yes, to senior bookkeeper Impression: Primary Impression: Metabolic encephalopathy Additional Impressions: Urinary tract infection Hyperammonemia Condition: Guarded Referrals: NO PRIMARY CARE PROVIDER (PCP) Signature Scribe Signature: No scribe Attestation: The note accurately reflects work and decisions made by me.Drake Delgado MD 02/09/25 05:01 DRAKE DELGADO MD Feb 09, 2025 03:13
[2025-02-09 03:16] LABS: ABG BASE EXCESS 3.8 mmol/L (-2.0-3.0); ABG HCO3 25.8 mmol/L (21.0-28.0); ABG OXYGEN SATURATION 95.5 % (94.0-98.0); ABG PCO2 (T) 30.2 mmHg (35.0-48.0); ABG PH (T) 7.548 (7.350-7.450); ABG PO2 (T) 72.4 mmHg (83.0-108.0); ALLEN'S TEST POSITIVE; FCOHb 0.3 % (0.5-1.5); FHHb 4.5 % (0.0-5.0); FMetHb 0.3 % (0.0-1.5); FO2Hb 94.9 % (94.0-98.0); MODE NASAL CANNULA; PATIENT TEMPERATURE 36.5; TOTAL HEMOGLOBIN 12.3 G/dl (13.5-17.5)
[2025-02-09 03:21] LABS: BASOPHILS # (AUTO) 0.1 X10'3 (0-0.2); BASOPHILS % (AUTO) 0.7 % (0-1); EOSINOPHILS # (AUTO) 0.1 X10'3 (0-0.9); EOSINOPHILS % (AUTO) 1.2 % (0-6); HEMATOCRIT 32.9 % (42.0-52.0); HEMOGLOBIN 11.5 g/dl (14.0-17.9); LYMPHOCYTES # (AUTO) 0.7 X10'3 (1.1-4.8); LYMPHOCYTES % (AUTO) 7.8 % (21-51); MEAN CORPUSCULAR HEMOGLOBIN 37.2 PG (27.0-31.0); MEAN CORPUSCULAR VOLUME 106.1 FL (78-98); MONOCYTES # (AUTO) 0.6 X10'3 (0-0.9); MONOCYTES % (AUTO) 6.9 % (2-12); NEUTROPHILS # (AUTO) 7.3 X10'3 (1.8-7.7); NEUTROPHILS % (AUTO) 83.4 % (42-75); PLATELET COUNT 156 X10'3 (140-440); RED CELL DISTRIBUTION WIDTH 17.6 % (11.5-14.5); WHITE BLOOD COUNT 8.7 X10'3 (4.5-11.0)
[2025-02-09 03:34] LABS: ALBUMIN 2.3 G/DL (3.4-5.0); ANION GAP 5 (8-16); BLOOD UREA NITROGEN 29 MG/DL (7-18); BUN/CREATININE RATIO 20.7 (10.0-20.0); CALCIUM 8.6 MG/DL (8.5-10.1); CHLORIDE 101 MMOL/L (99-107); GLUCOSE 108 MG/DL (70-104); PRO BRAIN NATRIURETIC PEPTIDE 1292 PG/ML (0-450); SODIUM 136 MMOL/L (135-145); TOTAL CARBON DIOXIDE 30.4 MMOL/L (24-32); eCRCL 48 ML/MIN; eGFR 49 ML/MIN
--- NOTE | 2025-02-09 03:45 | RADIOLOGY REPORT ---
CHEST RADIOGRAPH Indication: CP Technique: Single frontal view of the chest was obtained COMPARISON: DI CHEST,SINGLE VIEW on DOS: 01/27/25, DI CHEST,SINGLE VIEW on DOS: 01/27/25, DI CHEST,SINGLE VIEW on DOS: 01/05/25 FINDINGS: Lines and Tubes: None Lungs: Moderate bibasilar atelectasis and diffuse increased prominence of the interstitial pulmonary markings. No evidence of focal consolidation. Pleura: No effusion. No pneumothorax. Cardiomediastinal contours: Unremarkable Bones: Unremarkable IMPRESSION: 1. No acute disease. Bibasilar atelectasis and diffuse increased prominence of the interstitial pulmo nary markings.
--- NOTE | 2025-02-09 03:47 | RADIOLOGY REPORT ---
EXAM: CT CT HEAD INDICATION: ams TECHNIQUE: CT of the head without intravenous contrast. Radiation Dose : 1. Head: CT Dose: CTDI volume is 62.68 mGy. Dose-length product is 1213.69 mGy*cm The dose indicators for CT are the volume Computed Tomography (CT) Dose Index (CTDIvol) and the Dose Length Product (DLP), and are measured in units of mGy and mGy-cm, respectively. These indicators are not patient dose, but values generated from the CT scanner acquisition factors. The report includes radiation exposure data for exposures received during this examination. COMPARISON: None FINDINGS: There is no evidence of acute intracranial hemorrhage, extra-axial collection, mass effect, midline s hift, herniation or hydrocephalus. Increased prominence of the ventricles, sulci and cisterns is consistent with the sequelae of atrophi c cortical volume loss. The diop-white differentiation is intact. Moderate diffuse confluent periventricular and subcortical white matter hypoattenuation is nonspecifi c but may be related to small vessel ischemic disease. The visualized paranasal sinuses and mastoid air cells are clear. The surrounding soft tissues and osseous structures are unremarkable. IMPRESSION: 1. No acute intracranial abnormality. 2. Chronic sequelae of microvascular disease and atrophic cortical volume loss. Radiation optimization: All CT scans at this facility use at least one of these dose optimization sherri hniques: automated exposure control mA and/or kV adjustment per patient size (includes targeted exam s where dose is matched to clinical indication) or iterative reconstruction.
[2025-02-09] MEDS ORDERED: NYST30CR46 TOP (04:07)
[2025-02-09] MEDS ORDERED: FURO10VI51 IV (04:07)
[2025-02-09] MEDS ORDERED: ACYC5CRE2 TP (04:07)
[2025-02-09] MEDS ORDERED: CHOL10006 PO (04:07)
[2025-02-09] MEDS ORDERED: EMOL250L2 TP (04:07)
[2025-02-09] MEDS ORDERED: APIX2.5T PO (04:07)
[2025-02-09 04:15] LABS: BILIRUBIN,URINE SMALL (Neg); CLARITY,URINE CLOUDY (Clear); COLOR,URINE YELLOW (Yellow); GLUCOSE, URINE 500 mg/dl (Neg); KETONES,URINE 15 mg/dl (Neg); LEUKOCYTE ESTERASE ,URINE SMALL (Neg); NITRITES, URINE NEGATIVE (Neg); OCCULT BLOOD,URINE LARGE (Neg); PROTEIN,URINE TRACE mg/dl (Neg)
[2025-02-09] MEDS: normal saline 1000ml 1,000 ML IV ONE (04:17)
[2025-02-09 04:18] LABS: UA COLLECTION TYPE FOLEY CATH
[2025-02-09] MEDS: CefTRIAXone 2gm/D5W 50ml BAG 50 ML IV ONE (04:18)
[2025-02-09 04:45] LABS: BACTERIA,URINE 1+ /HPF (Neg); SQUAMOUS EPITHELIAL CELL,UR FEW /LPF (FEW); WBC,URINE 20-30 /HPF (0-4)
[2025-02-09 04:54] LABS: URINE AMPHETAMINE SCREEN NEGATIVE (Neg); URINE BARBITUATE SCREEN NEGATIVE (Neg); URINE BENZODIAZEPINES SCREEN NEGATIVE (Neg); URINE CANNABINOID SCREEN NEGATIVE (Neg); URINE COCAINE SCREEN NEGATIVE (Neg); URINE METHADONE SCREEN NEGATIVE (Neg); URINE OPIATE SCREEN NEGATIVE (Neg); URINE PHENCYCLIDINE SCREEN NEGATIVE (Neg)
--- NOTE | 2025-02-09 05:54 | HISTORY AND PHYSICAL ---
History & Physical - Short Providers to CC ~ History of Present Illness Chief Complain & History Patient is a 80-year-old male resident of [facility] transferred to the emergency room for altered mental status, hypotension and hypothermia. I spoke with his Ms. Momin on the phone and she states that on Friday 3 days ago when she visited him he was altered and not responsive and that apparently has worsened in the past 2 days. In the ER the temperature was 93 and the blood pressure systolic was 98. I received a call from the resident that patient needs to be admitted to the ICU. When I saw the patient the BP is 114/41 with MAP of 65 with heart rate of 82. Patient's SPO2 is 96% on 2 L/min. Patient is altered and according to the RN and I witnessed that patient is oozing everywhere from his arms and legs. The ammonia level is 94. In the ER the Napier catheter was exchanged.Patient received 2 g IV Rocephin in the ER. Allergies: Coded Allergies: No Known Allergies (Unverified , 01/27/25) Home Medications Home Medications Active Reported Mycolog Cream* (Nystatin/Triamcinolone Acetonide) 100,000 Unit/Gram-0.1 % Cream.gm. 1 Applic TOP Q12H apply to affected area(s) Lasix (Furosemide) 10 Mg/Ml Vial 20 Mg IV BID Eucerin Intensive Repair (Emollient Combination No.110) 250 Ml Lotion 1 Applic TP BID PRN Vitamin D (Cholecalciferol) 1,000 Unit Capsule 2 Cap PO DAILY 30 Days Eliquis (Apixaban) 2.5 Mg Tablet 1 Tab PO Q12H 30 Days Zovirax 5% Cream* (Acyclovir) 5 Gm Cream.gm. 1 Applic TP HS Potassium Chloride 20 Meq Tablet.er 1 Tab PO DAILY 30 Days Farxiga (Dapagliflozin Propanediol) 10 Mg Tablet 1 Tab PO DAILY 30 Days Midodrine Hcl 10 Mg Tablet 1 Tab PO BID 30 Days Prilosec Otc (Omeprazole Magnesium) 20 Mg Tablet.dr 1 Tab PO DAILY 30 Days Exam Last recorded Lab results: 02/09/25 0305 02/09/25 0305 Vitals: Vital Signs Date Time Temp Pulse Resp B/P (MAP) Pulse Ox O2 Delivery O2 Flow Rate FiO2 02/09/25 04:59 94.7 83 16 114/57 (76) 97 2.0 Advance Care Planning Advanced Care plannin - 30 Minutes Problem\Assessment\Plan Additional Plan Assessment: - Altered mental status which seems multifactorial with possible sepsis and hyperammonemia. According to the patient has intermittent changes in mental status. Patient has been bedridden for the past 3 years and has been in the [facility] since December of this year. -Hypotension: - Protein calorie malnutrition: - Third spacing and oozing - Hypothermia: - Diabetes mellitus type 2: - History of heart failure: Plan: - Admit to the ICU - Start patient on NS 125 mL/h - Give 25 g albumin now - When established Mg axis can give lactulose for elevated ammonia level of 94 - Check LFTs - Send UA for culture - Continue Rocephin 2 g daily -Monitor the BG. - I spoke with his Mrs. Momin about CODE STATUS and patient is DO NOT RESUSCITATE and DO NOT INTUBATE. Patient was seen through remote audio-visual assessment through HIPAA compliant setup. All labs, flow sheets and images reviewed and discussed by the bedside nurse who was present during the visit.CC time 60 minutes. IZZY SIFUENTES MD Feb 09, 2025 05:54
[2025-02-09] MEDS ORDERED: magnesium hydroxide 30ml (MOM) UD suspension PO PRN (05:55)
--- NOTE | 2025-02-09 06:01 | HISTORY AND PHYSICAL-Residence ---
History & Physical Providers to CC Resident Creating Document: MANDIE LADD, RES CC: IZZY SIFUENTES MD ~ History of Present Illness Primary Medical Doctor: NATANAEL Seymour Reason for Admit\Complaint: Hypothermia and hypotension History of Present Illness A 74-year-old male was edematous was transferred from [facility] in view of hypothermia and hypotension. Patient had a temperature of 93 F and blood pressure in the range of 90s when he was in the ED per EMS. Patient has anasarca and dyspnea. Patient is not conscious, AAOX 0. Patient responded to [facility] at the most. Patient was initially on dobutamine drip at [facility] but was stopped in view of hypotension and hypothermia. No history could be obtained from him. patient had multiple similar hospitalizations to the ED in the past. After after discussion with the night grader operator Dr. Sifuentes, patient is being transferred to the ICU in view of labile blood pressure, temperatures and altered level of consciousness with elevated ammonia levels. Patient also has lot of bacteria on urinalysis with no nitrites, has been given 2 g of Rocephin in the ED. Allergies: Coded Allergies: No Known Allergies (Unverified , 01/27/25) Home Medications Home Medications Active Reported Mycolog Cream* (Nystatin/Triamcinolone Acetonide) 100,000 Unit/Gram-0.1 % Cream.gm. 1 Applic TOP Q12H apply to affected area(s) Lasix (Furosemide) 10 Mg/Ml Vial 20 Mg IV BID Eucerin Intensive Repair (Emollient Combination No.110) 250 Ml Lotion 1 Applic TP BID PRN Vitamin D (Cholecalciferol) 1,000 Unit Capsule 2 Cap PO DAILY 30 Days Eliquis (Apixaban) 2.5 Mg Tablet 1 Tab PO Q12H 30 Days Zovirax 5% Cream* (Acyclovir) 5 Gm Cream.gm. 1 Applic TP HS Potassium Chloride 20 Meq Tablet.er 1 Tab PO DAILY 30 Days Farxiga (Dapagliflozin Propanediol) 10 Mg Tablet 1 Tab PO DAILY 30 Days Midodrine Hcl 10 Mg Tablet 1 Tab PO BID 30 Days Prilosec Otc (Omeprazole Magnesium) 20 Mg Tablet.dr 1 Tab PO DAILY 30 Days Past Medical History Past Medical History Per previous records: Chronic Heart failure History of orthostatic hypotension on midodrine Rosacea on doxycycline Acid reflux Past Surgical History Surgical History Comment Per previous records: Right hip surgery Past Social History Social History Comment Per previous records:Never smoked, with a rare alcohol use, denies illicit drug use, Uses wheelchair for ambulation Lives in his home with his 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, 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 ROS ROS Could not be elicited Exam Vitals: Vital Signs Date Time Temp Pulse Resp B/P (MAP) Pulse Ox O2 Delivery O2 Flow Rate FiO2 02/09/25 04:59 94.7 83 16 114/57 (76) 97 2.0 General: General: Morbidly obese male, obtunded HEENT: PERRLA, no icterus, pallor, lymphadenopathy, carotid bruit, anasarca Respiratory system: Decreased bilateral breath sounds with crackles present all over CVS: S1-S2 heard, no murmurs/rubs/gallop, elevated JVP GI: Generalized distention, Soft, nontender, no organomegaly, no guarding/rigidity, bowel sounds present Neuro: Could not be elicited Extremities: Diffuse edema of the bilateral lower extremities Skin: Warm and dry Diagnostic Data Last Recorded Lab Results: 02/09/25 0305 02/09/25 0305 Advance Care Planning Advanced Care plannin - 30 Minutes (Patient is full code by default) Additional Plan Assessment and plan: Patient has been transferred to the ICU for further care. Date of Service: Feb 09, 2025 Billing Provider: IZZY SIFUENTES MD, SIVA, RES Feb 09, 2025 06:01
[2025-02-09] MEDS: LidoCAINE 2% Topical Jelly 11mL syringe (UROJET) TOP ONE (06:45)
[2025-02-09] MEDS: albumin (Human) 5% 250ml 500 ML IV ONE ×2 (07:40→07:53)
[2025-02-09] MEDS: ringers solution, lacted 1,000 ML IV SCH (08:10)
--- NOTE | 2025-02-09 09:35 | PROGRESS NOTE ---
Clinical Note Clinical Note Progress Note: The family is at bedside and speaking with Dr. Castro the patient has been changed to comfort care after his conversation with the family the patient has had very poor p.o. intake for a month and arrived to ED with severe hypothermia with a temperature of 94.5 and was nonresponsive. The patient has a serum ammonia level 94. The patient is sleeping currently Visit Coding Cardiology Date of Service: Feb 09, 2025 Billing Provider: LEO REID DO Cardiology Evaluation and Xenia: NOT BILLABLE (Admitted after midnight to be billed by unscrambler) LEO REID DO Feb 09, 2025 09:35
[2025-02-09] MEDS ORDERED: morphine 10mg/0.5ml (conc. morphine) oral syringe PO PRN (09:40)
[2025-02-09] MEDS: morphine 4 MG/ML inj SYRINge IV PRN (11:01)
[2025-02-09 11:10] VITALS: RESP 12; O2SAT 90
[2025-02-09] MEDS ORDERED: lactulose 20gm/30ml cup NG SCH (13:00)
[2025-02-09] MEDS ORDERED: rifaximin 20mg/ml oral suspension 60 ML BOTTLE PO SCH (13:00)
[2025-02-09 18:00] VITALS: BP 121/49; PULSE 90; RESP 17; TEMP 97.4; O2SAT 90
[2025-02-10 04:00] VITALS: BP 93/39; PULSE 85; RESP 14; TEMP 96.3; O2SAT 93
[2025-02-10] MEDS: hyoscyamine 0.125mg TAB.SUBL SL PRN (10:01)
--- NOTE | 2025-02-10 15:16 | PROGRESS NOTE ---
Daily Progress Note Providers to CC ~ Antibiotic Timeout Antibiotic Ordered?: No Subjective CC- OBTUNDED, UNRESPONSIVE Objective Vital Signs Date Time Temp Pulse Resp B/P (MAP) Pulse Ox O2 Delivery O2 Flow Rate FiO2 02/10/25 08:00 Nasal Cannula 1.5 02/10/25 04:48 16 02/10/25 04:00 96.3 85 93/39 (57) 93 Result Diagram: 02/09/25 03002/09/25 030 General: General: Morbidly obese male, obtunded HEENT: PERRLA, no icterus, pallor, lymphadenopathy, carotid bruit, anasarca Respiratory system: Decreased bilateral breath sounds with crackles present all over CVS: S1-S2 heard, no murmurs/rubs/gallop, elevated JVP GI: Generalized distention, Soft, nontender, no organomegaly, no guarding/rigidity, bowel sounds present Extremities: Diffuse edema of the bilateral lower extremities Skin: Warm and dry Problem\Assessment\Plan A/P 1. Hypothermia possibly from sepsis etiology unclear family not wanting any further workup patient is made DNR with comfort care measures 2 history of CHF Echo from 01/16/2025 Conclusion Normal LV size and wall thickness. Overall systolic function is normal. LVEF is 55-60%. Right ventricle is moderately dilated with adequate function. The left atrium size is normal. Trileaflet AV appears mildly sclerotic without stenosis. No insufficiency. Mitral valve leaflets are mildly thickened with mild annular calcification. No stenosis. Trace regurgitation. The tricuspid valve is normal in structure with trace regurgitation. Normal pericardium. No effusion. Prominent anterior epicardial fat pad is present. 3. History of hypotension patient on midodrine we will hold off on medications right now as patient is very obtunded 4 family at bedside answered all her questions to the best of my ability they do not want him on comfortable there is not want him in pain Date of Service: Feb 10, 2025 Billing Provider: MALKA VALLEJO MD Common Visit Codes: [id number] INP/OBS CARE(HIGH) MALKA VALLEJO MD Feb 10, 2025 15:16
[2025-02-10 18:00] VITALS: BP 106/46; PULSE 86; RESP 18; TEMP 97; O2SAT 94
[2025-02-10 22:00] VITALS: BP 116/41; PULSE 81; RESP 20; O2SAT 93
--- NOTE | 2025-02-11 09:59 | PROGRESS NOTE ---
Daily Progress Note Providers to CC ~ Antibiotic Timeout Antibiotic Ordered?: No Subjective Patient more awake alert and interactive. He admits to being very confused he does not realize what happened to him prior to him being admitted to the hospital Objective Vital Signs Date Time Temp Pulse Resp B/P (MAP) Pulse Ox O2 Delivery O2 Flow Rate FiO2 02/10/25 22:00 81 20 116/41 (66) 93 Nasal Cannula 2.0 02/10/25 18:00 97.0 Result Diagram: 02/09/2530402/09/25304 General: General: Morbidly obese male patient is alert and oriented x1 in no acute distress HEENT: PERRLA, no icterus, pallor, lymphadenopathy, carotid bruit, anasarca Respiratory system: Decreased bilateral breath sounds with crackles present all over CVS: S1-S2 heard, no murmurs/rubs/gallop, elevated JVP GI: Generalized distention, Soft, nontender, no organomegaly, no guarding/rigidity, bowel sounds present Extremities: Diffuse edema of the bilateral lower extremities Skin: Warm and dry Problem\Assessment\Plan A/P 1. Hypothermia possibly from sepsis etiology unclear family not wanting any further workup patient is made DNR Resolved 2 history of CHF Echo from 01/16/2025 Conclusion Normal LV size and wall thickness. Overall systolic function is normal. LVEF is 55-60%. Right ventricle is moderately dilated with adequate function. The left atrium size is normal. Trileaflet AV appears mildly sclerotic without stenosis. No insufficiency. Mitral valve leaflets are mildly thickened with mild annular calcification. No stenosis. Trace regurgitation. The tricuspid valve is normal in structure with trace regurgitation. Normal pericardium. No effusion. Prominent anterior epicardial fat pad is present. 3. History of hypotension patient on midodrine RESTART MIDODRINE 4 ALOC-GET AN MRI OF THE BRAIN START LACTULOSE family at bedside answered all her questions to the best of my ability THEY ARE AGREEABLE WITH THE PLAN OF CARE Going to take the patient off of comfort care and just continue with DNR get a hospice consult Date of Service: Feb 11, 2025 Billing Provider: MALKA VALLEJO MD Common Visit Codes: [id number] INP/OBS CARE(HIGH) MALKA VALLEJO MD Feb 11, 2025 09:58
[2025-02-11 10:00] VITALS: BP 98/45; PULSE 69; RESP 16; TEMP 97.8; O2SAT 97
[2025-02-11] MEDS: lactulose 20gm/30ml cup PO SCH (13:48)
[2025-02-11] MEDS: ondansetron 4mg rapidly disintigrating tab PO PRN (13:48)
[2025-02-11] MEDS ORDERED: HYDROcodone/acetaminophen 10/325mg tab PO PRN (16:45)
[2025-02-11] MEDS ORDERED: HYDROcodone/acetaminophen 5mg/325mg tablet PO PRN (16:45)
[2025-02-11 18:00] VITALS: BP 89/55; PULSE 62; RESP 18; TEMP 98.2; O2SAT 92
[2025-02-11] MEDS: furosemide 20 MG/2 ML vial IV SCH (20:00)
[2025-02-11] MEDS: apixaban 2.5mg tablet PO SCH (20:00)
[2025-02-11] MEDS: nystatin/triamcinolone cream 15gm TP SCH (20:00)
[2025-02-11] MEDS: midodrine 5mg tablet PO SCH (20:00)
[2025-02-11] MEDS: acyclovir 5% 2 GM cream TP SCH (20:07)
[2025-02-11 22:00] VITALS: BP 111/45; PULSE 78; RESP 20; TEMP 97.4; O2SAT 91
[2025-02-11] MEDS: LORazepam 2 mg/ml vial IV PRN (23:30)
[2025-02-12] MEDS ORDERED: cholecalciferol (vitamin D3) 1,000 unit (25mcg) tablet PO SCH (08:00)
[2025-02-12] MEDS ORDERED: pantoprazole 40mg Tablet.DR PO SCH (08:00)
[2025-02-12] MEDS ORDERED: potassium Cl 20 mEq SR tablet PO SCH (08:00)
[2025-02-12] MEDS ORDERED: EMPAGLIFLOZIN 25 MG TABLET PO SCH (08:00)
--- NOTE | 2025-02-12 10:30 | DISCHARGE SUMMARY ---
Discharge Summary Providers to CC ~ Discharge Summary Admission Diagnosis: ALOC Hospital Course DATE OF ADMISSION: 02/09/2025 DATE OF DISCHARGE: 02/11/2025 Discharge Diagnosis\Comment: Hepatic encephalopathy morbid obesity sepsis hypothermia ALOC Operations\Procedures: None Consultants: None Complications: None Condition on DC: Discharge Summary: Patient is a 80-year-old that was transferred to us from [facility] for acute loss of consciousness on 02/09/2025 with Reason for Admit\Complaint: Hypothermia and hypotension History of Present Illness A 74-year-old male was edematous was transferred from [facility] in view of hypothermia and hypotension. Patient had a temperature of 93 F and blood pressure in the range of 90s when he was in the ED per EMS. Patient has an asarca and dyspnea. Patient is not conscious, AAOX 0. Patient responded to [facility] at the most. Patient was initially on dobutamine drip at [facility] but was stopped in view of hypotension and hypothermia. No history could be obtained from him. patient had multiple similar hospitalizations to the ED in the past. After after discussion with the night tool machine setup operator Dr. Arroyo, patient is being transferred to the ICU in view of labile blood pressure, temperatures and altered level of consciousness with elevated ammonia levels. Patient also has lot of bacteria on urinalysis with no nitrites, has been given 2 g of Rocephin in the ED. Patient's family wanted the patient to be a DNR and comfort care but on 620 8:25 p.m. patient woke up was confused but change status from comfort care to proceed with treatment but wanted to continue the DNR status. Patient had an elevated ammonia level with unclear etiology an MRI was ordered was not able to be obtained as patient is body habitus does not allow him to fit in our machine. Patient cause of hypothermia was unclear. Patient on 02/11/2025. *Problems/Diagnosis: (1) Chronic anemia Status: Acute (2) Anasarca Status: Chronic (3) Hypothermia Status: Resolved (4) CHF exacerbation Status: Resolved (5) Urinary tract infection Status: Acute (6) Metabolic encephalopathy Status: Acute Total Time Spent on D/C: > 30 Minutes Date of Service: Feb 11, 2025 Billing Provider: MALKA VALLEJO MD Common Visit Codes: [id number] DISCH DAY >30min MALKA VALLEJO MD Feb 12, 2025 10:30
== END 2025-02-12 06:40 | DRG 698 ==
LOC: ER 02:55 → ED HOLD 05:25 → UNDOADMIN 05:25 → ED HOLD 06:12 → EDBEDREQ 09:13 → EDBEDREQSVC 09:15 → EDBEDREQ 09:37 → ED HOLD 10:27 → ORTHO 4S 10:27
PROVIDERS: ADMIT Internal Medicine Sleep Medicine; ATTEND Family Medicine
DX: T83.511A Infection and inflammatory reaction due to indwelling urethral catheter, initial encounter (principal); A41.9 Sepsis, unspecified organism; G93.41 Metabolic encephalopathy; E72.20 Disorder of urea cycle metabolism, unspecified; E46 Unspecified protein-calorie malnutrition; Z68.42 Body mass index [BMI] 45.0-49.9, adult; N39.0 Urinary tract infection, site not specified; K21.9 Gastro-esophageal reflux disease without esophagitis; Z20.822 Contact with and (suspected) exposure to COVID-19; Z66 Do not resuscitate; E11.9 Type 2 diabetes mellitus without complications; D64.9 Anemia, unspecified; E66.01 Morbid (severe) obesity due to excess calories; K76.82 Hepatic encephalopathy; I50.9 Heart failure, unspecified; Z79.01 Long term (current) use of anticoagulants; Z79.899 Other long term (current) drug therapy; Z51.5 Encounter for palliative care; Z74.01 Bed confinement status; Y92.9 Unspecified place or not applicable; Y82.8 Other medical devices associated with adverse incidents
CPT/HCPCS: 36415; 36600; 70450; 71045; 80048; 80305; 81001; 82140; 82803; 82948; 83605; 83880; 84145; 84484; 85018; 85025; 87040; 87081; 87088; 87811; 93005; 96365; 99285; A4615; A5200; A6154; A6213; A6223; A6258; A6449; C1758; G0378; J0696; J1938; J2060; J2270; J3490; J7030; P9045